=== PATIENT | male | born 1960 | race Caucasian/White ===

== ENCOUNTER → 2020-10-05 11:45 | Outpatient (CLI) | payer OTHER, SELFPAY ==
--- NOTE | 2020-10-05 11:48 | XR_ITS ---
PROCEDURE: XR HAND RT MIN 3V CLINICAL INDICATION: pain COMPARISON: No exams were available for comparison FINDINGS: Mild osteoarthritic changes are present at the DIP of the 3rd and 4th digits and interphalangeal joint of the 1st digit. No fracture or dislocation. Other findings:None. IMPRESSION: Mild osteoarthritic change Dictated by: Pedro Patton MD 10/05/2020 12:39 Pedro Patton MD in [place] 10/05/2020 12:39
== END ==
PROVIDERS: PCP Nurse Practitioner Family; Visit Provider Nurse Practitioner Family
DX: M79.641 Pain in right hand (principal)
CPT/HCPCS: 73130

== ENCOUNTER → 2020-10-05 15:28 | Outpatient (CLI) | payer OTHER, SELFPAY ==
[2020-10-05 15:49] LABS: Alanine Aminotransferase 51 U/L (12-78); Albumin/Globulin Ratio 1.3 (1.1-1.8); Alkaline Phosphatase 72 U/L (38-126); Anion Gap 17.8 mEq/L (5-15); Aspartate Amino Transferase 89 U/L (17-59); Bilirubin,Total 0.7 mg/dl (0.2-1.3); Blood Urea Nitrogen 13 mg/dl (9-20); Calcium 9.8 mg/dl (8.4-10.2); Carbon Dioxide 26 mmol/L (22.0-30.0); Chloride 102 mmol/L (98-107); Chol/HDL Ratio 2.4 (1-3.5); Cholesterol 217 mg/dl (140-200); Estimated Glomerular Filt Rate 99 ml/min (>60); GFR (African American) 119 ML/MIN (>60); Globulin 3.8 g/dL (1.3-3.2); Glucose 103 mg/dl (74-100); HDL Cholesterol 90 mg/dl (40-60); Potassium 3.8 mmoL/L (3.5-5.1); Sodium 142 mmol/L (136-145); Total Protein,Serum 8.8 g/dl (6.3-8.2); Triglycerides 118 mg/dl (30-150); VLDL Cholesterol 24 mg/dL (0-40)
[2020-10-05 16:00] LABS: Direct LDL Cholesterol 106.66 mg/dL (100-129)
[2020-10-05 16:07] LABS: T4 (Thyroxine) 7.9 ug/dl (5.53-11.0)
[2020-10-05 16:11] LABS: 25-OH Vitamin D, Total < 12.8 ng/mL (30-100)
[2020-10-05 16:20] LABS: Thyroid Stimulating Hormone 2.24 uIU/mL (0.465-4.68)
[2020-10-05 16:39] LABS: Vitamin B12 462 pg/mL (239-931)
[2020-10-05 19:49] LABS: Basophils # 0.1 K/mm3 (0-0.2); Eosinophils # 0.1 K/mm3 (0.0-0.4); Eosinophils % 1.6 % (0.1-12.0); Hematocrit 46.8 % (42.0-52.0); Hemoglobin 15.5 g/dL (14.1-18.0); Lymphocytes # 1.4 K/mm3 (0.7-4.5); Lymphocytes % 25.8 % (10-50); Mean Corpuscular HGB Conc 33.1 g/dL (31.8-35.4); Mean Corpuscular Hemoglobin 30.8 pg (27.0-31.2); Mean Platelet Volume 8.6 fl (7.4-10.4); Monocytes # 0.4 K/mm3 (0.1-1.0); Monocytes % 7.9 % (1.7-9.3); Neutrophils # 3.5 K/mm3 (1.8-7.8); Neutrophils % 63.7 % (37.0-80.0); Platelet Count 180 K/mm3 (142-424); Red Blood Count 5.04 M/mm3 (4.60-6.20); Red Cell Distribution Width 13.2 % (11.5-17.5); White Blood Count 5.5 K/mm3 (4.8-10.8)
[2020-10-05 20:21] LABS: Hemoglobin A1C 5.6 % (4.0-6.0)
== END ==
PROVIDERS: Visit Provider Nurse Practitioner Family
DX: I25.10 Atherosclerotic heart disease of native coronary artery without angina pectoris (principal); R53.83 Other fatigue; R73.09 Other abnormal glucose; E55.9 Vitamin D deficiency, unspecified
CPT/HCPCS: 80053; 80061; 82306; 82607; 83036; 84436; 84443; 85025

== ENCOUNTER → 2020-11-07 06:11 | Outpatient (CLI) | payer OTHER, SELFPAY ==
--- NOTE | 2020-11-07 06:11 | NM_ITS ---
APPROVED REPORT Exam: Nuclear Stress Test Indication: CAD, Hx of IA, High cholesterol, Family history Patient Location: Outpatient Stress Tech: Brianna Dubose ID Tech:Diane Holm, ARRT, RT (R)(N) Ht: 5 ft 9 in Wt: 209 lbs HR: 82 bpm BP: 163/86 mmHg BSA: 2.10 m2 BMI: 30.8 History: CAD, Hx of IA, High cholesterol, Family history Procedure: Patient received a 0.4 mg of intravenous Lexiscan, resting heart rate 82 bpm, resting blood pressure 163/86 mmHg, with Lexiscan maximum heart rate achived was 111 bpm which is Less than 85 % of the maximum predicted heart rate and blood pressure was 170/91 mmHg. With Lexiscan, patient denied any complaint of chest pain. Electrocardiogram Resting electrocardiogram shows sinus rhythm, less than 1.[address] segment depression noted from the baseline EKG. The EKG portion of the Lexiscan is nondiagnostic. Cardiac Stress and Resting SPECT Images: Cardiac Stress and Resting SPECT images were obtained using technetium 99m Myoview 27.6 mCi stress and 9.52 mCi at rest. Gated SPECT for analysis of segmental wall motion and calculation of the ejection fraction also done. Prone images were also obtained. Cardiac stress and resting SPECT images show uniform myocardial activity without segmental perfusion abnormality, computer derived ejection fraction is 62% with no regional wall motion abnormality, right ventricle is normal size and contractility. Conclusion: 1. The EKG portion of the Lexiscan is nondiagnostic. 2. No scintigraphic evidence of reversible ischemia seen, computer derived ejection fraction is 62% with no regional wall motion abnormality, right ventricle is normal size and contractility. 3. Normal Lexiscan Myoview study. Electronically signed by : Phi Vasquez, 11/07/2020 22:03:16
--- NOTE | 2020-11-07 06:11 | CA_ITS ---
APPROVED REPORT Exam: Pharmacologic Technologist: Brianna Dubose Ht: 5 ft 9 in Wt: 208 lbs BSA: 2.10 m2 HR: 82 bpm BP: 163/86 mmHg Indications: Shortness of Air, chest pain Medical History Medications: Simvastatin,,,,, Vitamin D3,,,,, Allopurinol,,,,, Vitamin D2,,,,, Milk Thistle,,,,, Stress Test Details Test: LEXISCAN HR Resting HR: 86 bpm Max Heart Rate (APMHR): 160.974964 bpm Max HR Achieved: 111 bpm Target HR (85% APMHR): 136.292670 bpm % of APMHR: 69.38 Recovery HR: 82 bpm BP Resting BP: 163.0/86.0 mmHg Max BP: 170.0/91.0 mmHg Recovery BP: 153.0/87.0 mmHg ECG Clinical Exercise duration: 04:00 min Highest Stage Achieved: Stress ECG Conclusion Symptoms: Shortness of air with Lexiscan infusion. Headache noted. No chest pain. Arrhythmias/Ectopy: None noted ST-T Changes: < 1.[address] segment changes. Test Summary . Myoview Injected . . . Stop exercise at 04:00 . . . . . Electronically signed by : Phi Vasquez, 11/07/2020 21:55:10
--- NOTE | 2020-11-07 06:11 | CA_ITS ---
APPROVED REPORT EXAM: Comprehensive 2D, Doppler, and color-flow Echocardiogram Manager Home Improvement: Nancy Fermin RVT Ht: 5 ft 9 in Wt: 208lbs BSA: 2.10 BP: 160/94 mmHg Indications: SOA,STENTS,CAD,HTN,HLD,EX SMOKER,CP,HX ID 2D Dimensions LVOT 2.08 cm (M/F) 1.5-2.5 LA Volume 19.90 mL LA Volume Index 9.47 mL/m2 (M/F) 16-34 M-Mode Dimensions RVDd 3.37 cm (0.9-2.6) LA Diam 3.45 cm (1.9-4.0) LVDd 5.14 cm (3.5-5.7) Ao Diam 3.13 cm (2.0-3.7) LVDs 3.45 cm (3.5-5.7) IVSd 0.64 cm (0.6-1.1) PWd 0.96 cm (0.6-1.1) EF (Teich) 61.10% FS 32.90% EDV (Teich) 126.10 mL ESV (Teich) 49.10 mL LV Diastology E Decel Time 173.00 (160-240 msec) E/A Ratio 1.2 MED E' 8.10 (< 7 cm/sec) E'/MED E' Ratio 10.60 (>14) LAT E' 11.30 (<10 cm/sec) E/LAT E' Ratio 7.60 (>14) Mitral Valve MV E Max Sergio. 86.00 (40-130 cm/s) MV A Velocity 69.00 (40-130 cm/s) E/A Ratio 1.24 MV Decel. Time 173.00 (160-240 ms) MV PHT 51.00 ms Pulmonary Valve PV Peak Velocity 104.00 (50-150 cm/s) Left Ventricle Left atrium is mildly enlarged, left ventricle is normal size, mild concentric left ventricular hypertrophy, visually estimated ejection fraction of 55% with the marked hypokinesis involving the inferior basal wall. Grade 1 diastolic dysfunction seen without tissue Doppler evidence of raise left atrial pressure. Right Ventricle Right atrium and right ventricle are normal size and contractility. Aortic Valve Aortic valve is thickened and calcified leaflet continue to display good mobility, there is no aortic stenosis or aortic insufficiency. Mitral Valve Mitral valve leaflets are grossly normal, there is trace mitral regurgitation. Tricuspid Valve Tricuspid valve grossly normal, there is trace tricuspid regurgitation. Pulmonic Valve Pulmonic valve is poorly visualized. Great Vessels Aortic root is normal size. Pericardium No significant pericardial effusion noted. Conclusion 1. Mildly enlarged left atrium, normal left ventricular size, mild concentric left ventricular hypertrophy, visually estimated ejection fraction 55% with segmental wall motion abnormality described above, grade 1 diastolic dysfunction seen without tissue Doppler evidence of raise left atrial pressure. 2. Trace mitral and tricuspid regurgitation. 3. No significant pericardial effusion noted. Electronically signed by : Phi Vasquez, 11/07/2020 09:12:55
--- NOTE | 2020-11-07 10:08 | HMH.ITSHM ---
Current Home Medications as stated by this patient Rajeev Michelle or provider service representative. []SIMVASTATIN ALLOPURINOL
== END ==
PROVIDERS: PCP Nurse Practitioner Family; Visit Provider Physician Assistant
DX: I25.10 Atherosclerotic heart disease of native coronary artery without angina pectoris (principal); I10 Essential (primary) hypertension; R94.31 Abnormal electrocardiogram [ECG] [EKG]; E78.5 Hyperlipidemia, unspecified; Z95.5 Presence of coronary angioplasty implant and graft
CPT/HCPCS: 78452; 93017; 93306; A9502; J2785

== ENCOUNTER → 2020-11-12 08:38 | Outpatient (CLI) | payer OTHER, SELFPAY ==
--- NOTE | 2020-11-12 08:44 | MR_ITS ---
PROCEDURE: MR HAND RT WO CON CLINICAL INDICATION: hand pain Pt c/o rt 4th finger pain when he moves it. Pt states it started hurting him while playing golf. Pt denies pain and any other area of rt hand. COMPARISON: No exams were available for comparison TECHNIQUE: Routine multiplanar multi echo sequences are performed without gadolinium enhancement. FINDINGS: No acute bone marrow edema. Small effusions 2nd through 4th metacarpophalangeal joints and at the 5th metacarpophalangeal joint. Mild increased STIR signal adjacent to the proximal attachment of the ulnar collateral ligament at the 4th metacarpophalangeal joint and could be seen with partial tear. Osteoarthritic change 1st metacarpophalangeal joint. No obvious fracture. No tendon abnormalities apparent. IMPRESSION: Possible partial tear at the ulnar collateral ligament at the 4th metacarpophalangeal junction. Other nonacute findings as described above. [facility] report rendered and available for review Dictated by: Pedro Patton MD 11/15/2020 10:17 Pedro Patton MD in [place] 11/15/2020 10:17
== END ==
PROVIDERS: PCP Nurse Practitioner Family; Visit Provider Orthopaedic Surgery
DX: M79.641 Pain in right hand (principal)
CPT/HCPCS: 73218

== ENCOUNTER → 2021-01-10 07:18 | Outpatient (CLI) | payer OTHER, SELFPAY ==
[2021-01-10 07:44] LABS: Basophils # 0.1 K/mm3 (0-0.2); Basophils % 2.1 % (0.1-2.0); Eosinophils # 0.3 K/mm3 (0.0-0.4); Eosinophils % 7.3 % (0.1-12.0); Hematocrit 43.7 % (42.0-52.0); Hemoglobin 14.4 g/dL (14.1-18.0); Lymphocytes # 1.4 K/mm3 (0.7-4.5); Lymphocytes % 37.7 % (10-50); Mean Corpuscular Hemoglobin 30.8 pg (27.0-31.2); Mean Corpuscular Volume 93.3 fl (80-94); Mean Platelet Volume 8.7 fl (7.4-10.4); Monocytes # 0.3 K/mm3 (0.1-1.0); Monocytes % 8.7 % (1.7-9.3); Neutrophils # 1.6 K/mm3 (1.8-7.8); Neutrophils % 44.2 % (37.0-80.0); Platelet Count 184 K/mm3 (142-424); Red Blood Count 4.68 M/mm3 (4.60-6.20); Red Cell Distribution Width 13.2 % (11.5-17.5); White Blood Count 3.7 K/mm3 (4.8-10.8)
[2021-01-10 08:37] LABS: Chloride 101 mmol/L (98-107)
[2021-01-10 08:38] LABS: Potassium 3.9 mmoL/L (3.5-5.1); Sodium 140 mmol/L (136-145)
[2021-01-10 08:40] LABS: Alanine Aminotransferase 70 U/L (12-78); Albumin Level 4.6 g/dl (3.5-5.0); Albumin/Globulin Ratio 1.6 (1.1-1.8); Alkaline Phosphatase 59 U/L (38-126); Anion Gap 12.9 mEq/L (5-15); Aspartate Amino Transferase 95 U/L (17-59); Bilirubin,Total 0.6 mg/dl (0.2-1.3); Blood Urea Nitrogen 10 mg/dl (9-20); Carbon Dioxide 30 mmol/L (22.0-30.0); Cholesterol 181 mg/dl (140-200); Estimated Glomerular Filt Rate 86 ml/min (>60); GFR (African American) 104 ML/MIN (>60); Globulin 2.9 g/dL (1.3-3.2); Total Protein,Serum 7.5 g/dl (6.3-8.2); Triglycerides 122 mg/dl (30-150); VLDL Cholesterol 24 mg/dL (0-40)
[2021-01-10 08:41] LABS: Calcium 9.8 mg/dl (8.4-10.2); Chol/HDL Ratio 1.9 (1-3.5); Glucose 98 mg/dl (74-100); HDL Cholesterol 94 mg/dl (40-60)
[2021-01-10 08:52] LABS: Direct LDL Cholesterol 60.05 mg/dL (100-129)
[2021-01-10 08:54] LABS: Hemoglobin A1C 5.5 % (4.0-6.0)
[2021-01-10 09:00] LABS: T4 (Thyroxine) 7.1 ug/dl (5.53-11.0)
[2021-01-10 09:11] LABS: Thyroid Stimulating Hormone 2.77 uIU/mL (0.465-4.68)
[2021-01-17 04:12] LABS: 1,25 Dihydroxy Vitamin D 62 pg/mL (.); 1,25-Dihydroxy, Vitamin D-2 49 pg/mL (.); 1,25-Dihydroxy, Vitamin D-3 13 pg/mL (.)
== END ==
PROVIDERS: Visit Provider Nurse Practitioner Family
DX: I25.10 Atherosclerotic heart disease of native coronary artery without angina pectoris (principal); R73.09 Other abnormal glucose; E78.5 Hyperlipidemia, unspecified; I10 Essential (primary) hypertension; R73.03 Prediabetes; Z68.29 Body mass index [BMI] 29.0-29.9, adult
CPT/HCPCS: 36415; 80053; 80061; 82652; 83036; 84436; 84443; 85025

== ENCOUNTER → 2021-08-23 10:28 | Outpatient (CLI) | payer OTHER, SELFPAY | PROVIDERS: PCP Nurse Practitioner Family; Visit Provider Nurse Practitioner | DX: U07.1 COVID-19 (principal) | CPT/HCPCS: C9803; U0003; U0005 ==

== ENCOUNTER 2021-10-20 14:26 | Observation (INO) | payer OTHER, SELFPAY ==
[2021-10-16 13:19] VITALS: BMI 30.2
[2021-10-20] VITALS (8 sets, daily range): BP systolic 139–175; BP diastolic 82–103; PULSE 67–110; RESP 18–22; TEMP 36.1–37.2; O2SAT 95–97; BMI 30.4
--- NOTE | 2021-10-20 12:14 | HMH.ANESCL ---
[facility] Anesthesia Checklist - Patient Identification Patient Identification: Arm Band, Verbal (Name & ) - Structural Data Admitted From: Home Planned Operative Procedure/s: Colonoscopy Verified Documents: Surgical Consent - Airway Assessment C-Spine Mobility Assessed: Yes TMJ Mobility Assessed: Yes Dentition: Edentulous - Neurological Assessment Level of Consciousness: Awake, Alert, Appropriate - Anesthesia Plan Anesthesia Risk discussed: Yes ASA Class: III Anesthesia Type: MAC [facility] History I have reviewed the patient's past medical history: Yes Medical History: Reports:: Coronary Artery Disease, Hyperlipidemia, Hypertension, Myocardial Infarction Denies:: Cancer, Diabetes Mellitus Type 1, Diabetes Mellitus Type 2, Internal Pacemaker, MRSA, Seizures *Have you ever received a pneumonia vaccine?: No *Have you received a flu vaccine this season?: No Anesthesia experience/problems:: none Other Surgeries: Yes: Cardiac Catheterization, Coronary Stent. No: Pacemaker Amputation: No Fractures: Yes (r ankle) - *Social History Last grade of school completed: 11th or 12th Smoking Status: Former smoker Alcohol Intake: never Alcohol Intake Frequency:: 3 or more drinks per day Substance Use Type: denies use *Occupational Status:: employed Housing: house *Travel in the last 8 weeks: None Family Hx:: No significant family history
[2021-10-20 14:48] LABS: Basophils % 0.9 % (0.1-2.0); Eosinophils % 0.8 % (0.1-12.0); Hematocrit 42.1 % (42.0-52.0); Hemoglobin 13.8 g/dL (14.1-18.0); Lymphocytes # 1.1 K/mm3 (0.7-4.5); Lymphocytes % 30.9 % (10-50); Mean Corpuscular HGB Conc 32.7 g/dL (31.8-35.4); Mean Corpuscular Hemoglobin 31.4 pg (27.0-31.2); Mean Corpuscular Volume 95.9 fl (80-94); Mean Platelet Volume 7.7 fl (7.4-10.4); Monocytes # 0.3 K/mm3 (0.1-1.0); Monocytes % 9.2 % (1.7-9.3); Neutrophils # 2.1 K/mm3 (1.8-7.8); Neutrophils % 58.3 % (37.0-80.0); Platelet Count 153 K/mm3 (142-424); Red Blood Count 4.38 M/mm3 (4.60-6.20); Red Cell Distribution Width 14.1 % (11.5-17.5); White Blood Count 3.5 K/mm3 (4.8-10.8)
[2021-10-20 15:20] LABS: INR 1.06 (0.9-1.1); Prothrombin Time 11.9 seconds (10.1-12.5)
--- NOTE | 2021-10-20 15:26 | HMH.SCOPE ---
- Procedure: Date: 10/20/21 Patient Date of :: 1960 Procedure Performed:: Colonoscopy with numerous polypectomy, polypectomy biopsy, and deployment of Hemoclip for hemostasis Indications:: Patient is a 61-year-old male referred by Lizbeth Michelle for colonoscopy. He apparently did have a positive Cologuard last year he states in October 2020. He has never had a prior colonoscopy. He is asymptomatic regarding rectal bleeding. He has no family history of colon cancer but he does state that his mother had diverticulitis. Patient did have a heart attack at age 44 and has seen Sarah. Reportedly no cardiac issues. Patient did have Covid diagnosed on August 21, 2021. Patient admits that he drinks approximately 4-5 alcoholic beverages daily. Performing Provider:: Kimani Mckeon MD Referring Provider:: Lizbeth Michelle Sedation:: MAC sedation Procedure:: Consent was obtained and patient was taken to endoscopy procedure room. He was positioned in lateral decubitus position. Adequate intravenous sedation was achieved with anesthesia titration of propofol. Digital examination was performed which revealed uniformly enlarged prostate. Variable stiffness Olympus colonoscope was inserted via the anus. It was advanced to the cecum. Colonic preparation was good. Upon advancement of the colonoscope it was noted that he had multiple complex large polyps and a mass at the proximal transverse colon. The ileocecal valve and appendiceal orifice were clearly identified. Colonoscope was advanced short distance into the terminal ileum which appeared grossly normal. Colonoscope was withdrawn into the cecum. There were multiple polyps in the cecum. He had approximately 4 polyps measuring about 3 to 4 mm and a flat sessile 1 cm polyp in the cecum. These were removed with cold cutting snare. At the hepatic flexure there was a polyp removed with cold cutting snare. In the proximal transverse colon there was a large adenomatous mass which was hemicircumferential. Large portions of this were able to be removed with hot snare for biopsy. The mass could not be removed in its entirety. These pathologic specimens were repeatedly grasped with the Fritz net and macerated for removal. Racheal ink was injected at the site of this mass presumably near the proximal transverse colon. A Hemoclip was placed to car this radiographically. In the transverse colon there were a couple of additional polyps just distal to this measuring about 4 to 6 mm removed with cold cutting snare. In the distal transverse colon there were 5 polyps noted proximal to the hepatic flexure. 3 of these were pedunculated measuring about 8 to 12 mm these were removed with hot snare. There were 2 smaller polyps measuring 3 to 4 mm removed with cold snare. In the descending: There was a 4 mm polyp removed with cold snare. There were polyps noted within the sigmoid colon. There was a 12 mm polyp removed with hot snare. There was a 4 mm polyp removed with cold snare. Sigmoid polyp there was a 15 mm polyp removed with hot snare. Upon polypectomy there was noted to be bleeding from the polypectomy site. With some difficulty the clot was evacuated with repeated retrieval and reinsertion of the colonoscope and use of the Fritz net. There was polypectomy site that appeared to be recently bleeding and Hemoclip was deployed. However, just distal to this there was a second polypectomy site in the sigmoid colon approximately 45 cm from the anal verge which showed some active bleeding. Ultimately this had shown spontaneous resolution. There was a submucosal hematoma. To ensure hemostasis Hemoclip x2 was deployed at this location. Deployment of the Hemoclip was somewhat difficult due to the submucosal hematoma. There was no evidence of active bleeding at this time. He did have quite significant left-sided sigmoid diverticulosis. Retroflexion within the rectum revealed no evidence of any pathol
--- NOTE | 2021-10-20 15:36 | HMH.GSHP ---
HPI HPI: Patient is a 61-year-old male. He is referred by Lizbeth Michelle for colonoscopy. He did apparently have a positive Cologuard test in October 2020. He had never had prior colonoscopy. He has no family history of colon cancer. He states that his mother had diverticulitis. Patient apparently did have a heart attack at age 44. He sees cardiology. He had a diagnosis of COVID on 08/21/2021. Patient does admit to drinking daily alcohol. Patient was taken for endoscopy. He was found to have numerous complex polyps and had a transverse colon proximal mass. Polypectomy performed in the sigmoid colon resulted in post polypectomy bleeding immediately noted at the time of his procedure. Hemostasis was able to be achieved with Hemoclip deployment. However, plan was made for admission for inpatient observation to assess for recurrent bleeding and for hemoglobin stability. [facility] History I have reviewed the patient's past medical history: Yes Medical History: Reports:: Coronary Artery Disease, Hyperlipidemia, Hypertension, Myocardial Infarction Denies:: Cancer, Diabetes Mellitus Type 1, Diabetes Mellitus Type 2, Internal Pacemaker, MRSA, Seizures *Have you ever received a pneumonia vaccine?: No *Have you received a flu vaccine this season?: No Anesthesia experience/problems:: none Other Surgeries: Yes: Cardiac Catheterization, Coronary Stent. No: Pacemaker Amputation: No Fractures: Yes (r ankle) - *Social History Last grade of school completed: 11th or 12th Smoking Status: Former smoker Alcohol Intake: never Alcohol Intake Frequency:: 3 or more drinks per day Substance Use Type: denies use *Occupational Status:: employed Housing: house *Travel in the last 8 weeks: None Family Hx:: No significant family history Review of Systems - Review of Systems Review of systems:: unable to obtain Meds Home Medications Medication Instructions Recorded Confirmed Type milk thistle 175 mg tablet 350 mg PO DAILY tab 10/05/20 10/20/21 History cholecalciferol (vitamin D3) 25 25 mcg PO DAILY 10/25/20 10/20/21 History mcg (1,000 unit) capsule loratadine 10 mg tablet 10 mg PO DAILY 09/11/21 10/20/21 History sildenafil 25 mg tablet 25 mg PO DAILY PRN #10 tab 09/11/21 10/20/21 Rx Aspirin [Low Dose Aspirin EC] 81 mg PO DAILY 10/16/21 10/20/21 History Rosuvastatin Calcium See Rx Instructions .ROUTE .COMPLEX 10/16/21 10/20/21 History allopurinoL [Allopurinol 100mg See Rx Instructions .ROUTE .COMPLEX 10/16/21 10/20/21 History tablet] Allergies Allergy/AdvReac Type Severity Reaction Status Date / Time diphenhydramine Allergy Verified 10/20/21 10:41 [From Benadryl] hydrocodone Allergy Verified 10/20/21 10:41 nitroglycerin Allergy Verified 10/20/21 10:41 atorvastatin [From Lipitor] AdvReac Severe Verified 10/20/21 10:41 Exam Vital signs and Labs for Last 24 Hours: Temp Pulse Resp BP Pulse Ox 99 F 100 H 18 139/87 96 10/20/21 10:47 10/20/21 10:47 10/20/21 10:47 10/20/21 10:47 10/20/21 10:47 Laboratory Results - last 24 hr 10/20/21 14:30: WBC 3.5 L, RBC 4.38 L, Hgb 13.8 L, Hct 42.1, MCV 95.9 H, MCH 31.4 H, MCHC 32.7, RDW 14.1, Plt Count 153, MPV 7.7, Neut % (Auto) 58.3, Lymph % (Auto) 30.9, [place] % (Auto) 9.2, Eos % (Auto) 0.8, Baso % (Auto) 0.9, Neut # (Auto) 2.1, Lymph # (Auto) 1.1, [place] # (Auto) 0.3, Eos # (Auto) 0.0, Baso # (Auto) 0.0 10/20/21 14:30: PT 11.9, INR 1.06 - Constitutional no acute distress - *Routine HEENT Exam Head: Present: normocephalic Eye: Present: EOMI, PERRL ENT: Present: mucous membranes moist - *Routine Neck Exam Present: supple. Absent: lymphadenopathy - *Routine Respiratory Exam Present: CTA bilaterally - *Routine Cardiovascular Exam Present: RRR - *Routine Abdominal Exam Present: soft, normoactive bowel sounds. Absent: tenderness - *Routine Rectal Exam Rectal:: deferred - *Routine Genitalia Exam Genitalia:: deferred - *Routine Extremities Exam Abs
--- NOTE | 2021-10-20 15:43 | CT_ITS ---
PROCEDURE INFORMATION: Exam: CT Abdomen And Pelvis With Contrast Exam date and time: 10/20/2021 3:43 PM Age: 61 years old Clinical indication: Abdominal tenderness and other: Transverse colon proximal mass; Additional info: Colon mass found on scope today. Transverse colon proximal mass TECHNIQUE: Imaging protocol: Computed tomography of the abdomen and pelvis with contrast. Radiation optimization: All CT scans at this facility use at least one of these dose optimization techniques: automated exposure control; mA and/or kV adjustment per patient size (includes targeted exams where dose is matched to clinical indication); or iterative reconstruction. Contrast material: ISOVUE; Contrast volume: 75 ml; Contrast route: IV; COMPARISON: No relevant prior studies available. FINDINGS: Lungs: Patchy/ground-glass airspace opacities in the left lung base. Lung bases are otherwise clear. Diaphragm: A small hiatal hernia is present. Liver: There is enlargement of the liver, measuring 18.3 cm. There is a diffuse decrease in hepatic parenchymal density, consistent with fatty infiltration. The liver is otherwise unremarkable. Gallbladder and bile ducts: Normal. No calcified stones. No ductal dilation. Pancreas: Normal. No ductal dilation. Spleen: The spleen demonstrates punctate calcifications, consistent with remote granulomatous organism exposure. The spleen is otherwise unremarkable. Adrenal glands: Normal. No mass. Kidneys and ureters: Normal. No hydronephrosis. Stomach and bowel: There is diffuse colonic diverticulosis. [place] colonic intussusception in the transverse colon (image 69 series 3 and image 13 series a 1001). 4.3 cm x 3.7 cm mass at the level of the colo colonic intussusception, likely involving the intussusceptum. 2 cm metallic linear density at the level of the colo colonic intussusception. 1.7 cm x 1.7 cm intraluminal mass in the descending colon (image 91 series 3 and image 31 series a 1001). Questionable additional intraluminal polypoid lesions at the descending colon, for example a polypoid lesion is suggested in the descending colon on image 76 series 3. A 2nd polypoid lesion measuring 1.3 cm is suggested on image 80 series 3. Linear/metallic density at the level of the mass in the descending colon. A 2nd linear metallic density is also observed in the descending colon as well. No other large or measurable colonic masses are identified. No other segmental bowel wall thickening. There is diffuse colonic diverticulosis present. Appendix: No evidence of appendicitis. Intraperitoneal space: No free fluid, fluid collections, or pneumoperitoneum. Vasculature: The vasculature demonstrates diffuse mild atherosclerotic calcification. Lymph nodes: No retroperitoneal, pelvic, or mesenteric adenopathy. Urinary bladder: The bladder is decompressed. Circumferential urinary bladder wall thickening and mild perivesical fat stranding. Reproductive: Unremarkable as visualized. Bones/joints: No acute skeletal pathology. Mild multilevel degenerative changes of the spine, as manifested by multilevel anterior osteophytes and multilevel decrease in intervertebral disc space. Soft tissues: 2.2 cm intramuscular lipoma within the right teres major muscle. No other acute body wall soft tissue findings. IMPRESSION: 1. Transverse colon colo colonic intussusception, etiology related to a 4.3 cm x 3.7 cm colonic mass acting as a lead point. This correlates with the documented mass seen on a colonoscopy performed recently. Main diagnostic consideration is that of colonic carcinoma. 2. 2 cm metallic density at the level of the colonic mass, unclear if
[2021-10-20 16:02] LABS: Alanine Aminotransferase 49 U/L (12-78); Albumin Level 4.1 g/dl (3.5-5.0); Albumin/Globulin Ratio 1.6 (1.1-1.8); Alkaline Phosphatase 53 U/L (38-126); Anion Gap 17.3 mEq/L (5-15); Aspartate Amino Transferase 94 U/L (17-59); Bilirubin,Total 0.6 mg/dl (0.2-1.3); Blood Urea Nitrogen 10 mg/dl (9-20); Calcium 8.5 mg/dl (8.4-10.2); Carbon Dioxide 24 mmol/L (22.0-30.0); Chloride 100 mmol/L (98-107); Creatinine Clearance Estimated 102 mL/min (50-200); Estimated Glomerular Filt Rate 98 ml/min (>60); GFR (African American) 119 ML/MIN (>60); Globulin 2.5 g/dL (1.3-3.2); Glucose 73 mg/dl (74-100); Potassium 4.3 mmoL/L (3.5-5.1); Sodium 137 mmol/L (136-145); Total Protein,Serum 6.6 g/dl (6.3-8.2)
--- NOTE | 2021-10-20 16:24 | SUR.PHASEII ---
1615- oral RAD contrast po completed
--- NOTE | 2021-10-20 17:50 | PC.NURSE ---
Pt wishes to be a DNI. Expression of wishes form filled out and signed, code status changed in cpu at this time
[2021-10-20 18:06] LABS: Coronavirus 19, PCR Not Detected (NotDetected); Influenza A, PCR Not Detected (NotDetected); Influenza B, PCR Not Detected (NotDetected)
[2021-10-20 18:15] LABS: Hematocrit 40.7 % (42.0-52.0); Hemoglobin 13.4 g/dL (14.1-18.0)
--- NOTE | 2021-10-20 20:14 | HMH.CONS ---
*Admission Date: 10/20/21 *Reason for consult:: medical care *History of present illness: Patient is a 61-year-old male. He is referred by Lizbeth Michelle for colonoscopy. He did apparently have a positive Cologuard test in October 2020. He had never had prior colonoscopy. He has no family history of colon cancer. He states that his mother had diverticulitis. Patient apparently did have a heart attack at age 44. He sees cardiology. He had a diagnosis of COVID on 08/21/2021. Patient does admit to drinking daily alcohol. Patient was taken for endoscopy. He was found to have numerous complex polyps and had a transverse colon proximal mass. Polypectomy performed in the sigmoid colon resulted in post polypectomy bleeding immediately noted at the time of his procedure. Hemostasis was able to be achieved with Hemoclip deployment. However, plan was made for admission for inpatient observation to assess for recurrent bleeding and for hemoglobin stability. [facility] History I have reviewed the patient's past medical history: Yes Medical History: Reports:: Coronary Artery Disease, Hyperlipidemia, Hypertension, Myocardial Infarction Denies:: Cancer, Diabetes Mellitus Type 1, Diabetes Mellitus Type 2, Internal Pacemaker, MRSA, Seizures *Have you ever received a pneumonia vaccine?: No *Have you received a flu vaccine this season?: No Other Medical History: Reports: Sinus Problems Anesthesia experience/problems:: none Other Surgeries: Yes: Cardiac Catheterization, Colonoscopy, Coronary Stent. No: Pacemaker Amputation: No Fractures: Yes (r ankle) - *Social History Last grade of school completed: 11th or 12th Smoking Status: Former smoker Alcohol Intake: current Alcohol Intake Frequency:: 3 or more drinks per day Substance Use Type: denies use *Occupational Status:: employed Housing: house Household Members: significant other *Travel in the last 8 weeks: None Family Hx:: Cancer, Diabetes, Heart Attack, Hyperlipidemia, Hypertension Review of Systems - Review of Systems Review of systems:: pertinent systems reviewed and negative unless documented below - Constitutional Denies fever(s) - Eyes Denies change in vision - ENT Denies sore throat - *Cardiovascular Denies chest pain - *Respiratory Denies cough - *Gastrointestinal Reports abdominal pain, Reports nausea - *Genitourinary Denies blood in urine - *Musculoskeletal Denies joint pain - Integumentary/Breasts Denies rash - *Neurologic Denies behavioral changes, Denies seizure-like activity, Denies seizure-like activity - Psychiatric Reports anxiety, Reports other (etoh use ) Meds Home Medications Medication Instructions Recorded Confirmed Type milk thistle 175 mg tablet 350 mg PO DAILY tab 10/05/20 10/20/21 History cholecalciferol (vitamin D3) 25 25 mcg PO DAILY 10/25/20 10/20/21 History mcg (1,000 unit) capsule loratadine 10 mg tablet 10 mg PO DAILY 09/11/21 10/20/21 History sildenafil 25 mg tablet 25 mg PO DAILY PRN #10 tab 09/11/21 10/20/21 Rx Aspirin [Low Dose Aspirin EC] 81 mg PO DAILY 10/16/21 10/20/21 History Rosuvastatin Calcium See Rx Instructions .ROUTE .COMPLEX 10/16/21 10/20/21 History allopurinoL [Allopurinol 100mg See Rx Instructions .ROUTE .COMPLEX 10/16/21 10/20/21 History tablet] Allergies Allergy/AdvReac Type Severity Reaction Status Date / Time diphenhydramine Allergy Verified 10/20/21 10:41 [From Benadryl] hydrocodone Allergy Verified 10/20/21 10:41 nitroglycerin Allergy Verified 10/20/21 10:41 atorvastatin [From Lipitor] AdvReac Severe Verified 10/20/21 10:41 Exam Vital signs and Labs for Last 24 Hours: Temp Pulse Resp BP Pulse Ox 97.4 F L 67 18 162/86 H 96 10/20/21 16:00 10/20/21 16:15 10/20/21 16:15 10/20/21 16:15 10/20/21 16:15 Laboratory Results - last 24 hr 10/20/21 14:30: WBC 3.5 L, RBC 4.38 L, Hgb 13.8 L, Hct 42.1, MCV 95.9 H, MCH 31.4 H, MCHC 32.7, RDW 14.1, Plt Count 153, MPV 7.7
--- NOTE | 2021-10-20 20:17 | PC.NURSE ---
Pint of vodka found in pt's room. 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 CIWA score on arrival was 8, 2 hours later CIWA score of 10. MD Ga notified-telephone order to start Ativan CIWA protocol along w/ thiamine, multivitamin and folic acid per ETOH withdrawal protocol. 1mg IV Ativan given per protocol. MD Dupont did round on pt-ordered rally pack x1. Also made aware of abd CT findings of multiple masses. NNO
[2021-10-21] VITALS: BP 116/67; PULSE 117; RESP 16; TEMP 37; O2SAT 95
[2021-10-21 04:00] VITALS: BP 119/72; PULSE 88; RESP 16; TEMP 36.9; O2SAT 93
[2021-10-21 05:03] VITALS: BMI 29.4
[2021-10-21 07:24] LABS: Basophils % 0.5 % (0.1-2.0); Eosinophils % 0.2 % (0.1-12.0); Hematocrit 38.1 % (42.0-52.0); Hemoglobin 12.5 g/dL (14.1-18.0); Lymphocytes # 1.3 K/mm3 (0.7-4.5); Lymphocytes % 14.2 % (10-50); Mean Corpuscular HGB Conc 32.7 g/dL (31.8-35.4); Mean Corpuscular Hemoglobin 30.6 pg (27.0-31.2); Mean Corpuscular Volume 93.6 fl (80-94); Mean Platelet Volume 7.9 fl (7.4-10.4); Monocytes # 0.7 K/mm3 (0.1-1.0); Monocytes % 7.2 % (1.7-9.3); Neutrophils # 7.2 K/mm3 (1.8-7.8); Neutrophils % 77.9 % (37.0-80.0); Platelet Count 169 K/mm3 (142-424); Red Blood Count 4.07 M/mm3 (4.60-6.20); Red Cell Distribution Width 14.6 % (11.5-17.5); White Blood Count 9.2 K/mm3 (4.8-10.8)
[2021-10-21 07:39] VITALS: BP 144/76; PULSE 98; RESP 16; TEMP 36.7; O2SAT 95
--- NOTE | 2021-10-21 07:58 | P.PN_ITS ---
Subjective Narrative: Patient feels good without any complaints whatsoever. He has been tolerating clear liquids. He initially had some blood with bowel movements as expected. This has now normalized to brown liquid. He denies abdominal pain. Progress Note: A&P Assessment and Plan for All Diagnoses:: Hemoglobin shows very slight decrease as would be expected with the polypectomy bleeding and hemodilution. He has had no additional clinical bleeding and has had some brown liquid bowel movements. I explained to the patient the findings on colonoscopy and CT scan with the implications. He will need colon resection. Plan will be for discharge with close outpatient follow-up. Exam Vital signs and Labs for Last 24 Hours: Temp Pulse Resp BP Pulse Ox 98.1 F 98 H 16 144/76 H 95 10/21/21 07:39 10/21/21 07:39 10/21/21 07:39 10/21/21 07:39 10/21/21 07:39 Laboratory Results - last 24 hr 10/20/21 14:30: WBC 3.5 L, RBC 4.38 L, Hgb 13.8 L, Hct 42.1, MCV 95.9 H, MCH 31.4 H, MCHC 32.7, RDW 14.1, Plt Count 153, MPV 7.7, Neut % (Auto) 58.3, Lymph % (Auto) 30.9, [place] % (Auto) 9.2, Eos % (Auto) 0.8, Baso % (Auto) 0.9, Neut # (Auto) 2.1, Lymph # (Auto) 1.1, [place] # (Auto) 0.3, Eos # (Auto) 0.0, Baso # (Auto) 0.0 10/20/21 14:30: PT 11.9, INR 1.06 10/20/21 14:30: Sodium 137, Potassium 4.3, Chloride 100, Carbon Dioxide 24, Anion Gap 17.3 H, BUN 10, Creatinine 0.80, Estimated Creat Clear 102, Estimated GFR 98, Est GFR ( Amer) 119, Glucose 73 L, Calcium 8.5, Total Bilirubin 0.6, AST 94 H, ALT 49, Alkaline Phosphatase 53, Total Protein 6.6, Albumin 4.1, Globulin 2.5, Albumin/Globulin Ratio 1.6 10/20/21 18:00: Hgb 13.4 L, Hct 40.7 L 02/25/22 18:00: SARS-CoV-2 (PCR) Not detected, Influenza A Untype (PCR) Not detected, Influenza Type B (PCR) Not detected 10/21/21 06:18: WBC 9.2 D, RBC 4.07 L, Hgb 12.5 L, Hct 38.1 L, MCV 93.6, MCH 30.6, MCHC 32.7, RDW 14.6, Plt Count 169, MPV 7.9, Neut % (Auto) 77.9, Lymph % (Auto) 14.2, [place] % (Auto) 7.2, Eos % (Auto) 0.2, Baso % (Auto) 0.5, Neut # (Auto) 7.2, Lymph # (Auto) 1.3, [place] # (Auto) 0.7, Eos # (Auto) 0.0, Baso # (Auto) 0.0 I & O for Last 24 hours: Intake & Output 10/18/21 10/19/21 10/20/21 10/21/21 11:59 11:59 11:59 11:59 Intake Total 60 / 60 Balance 60 / 60 Weight 198 lb 14.4 oz - *Routine Abdominal Exam Present: soft. Absent: tenderness
--- NOTE | 2021-10-21 08:05 | HMH.DCSUM ---
General - General Admission date:: 10/20/21 Discharge date: 10/21/21 HPI HPI: Patient is a 61-year-old male referred by Lizbeth Michelle for colonoscopy. He was seen in the office as a consultation on 10/12/2021. He apparently did have a positive Cologuard. He has never had a prior colonoscopy. He was asymptomatic regarding rectal bleeding. He has no family history of colon cancer but he does state that his mother had diverticulitis. Patient did have a heart attack at age 44 and has seen Sarah. Reportedly no cardiac issues. Patient did have Covid diagnosed on August 21, 2021. Patient admits that he drinks approximately 4-5 alcoholic beverages daily. He was scheduled for a colonoscopy. Given his admission to daily alcohol consumption preoperative blood work was ordered. However, patient did not have this performed. Therefore he had blood work performed during his procedure. Hospital Course Hospital Course: Patient was taken to endoscopy suite at which time he underwent colonoscopy. He was found to have numerous complex polyps throughout the colon, significant left-sided diverticulosis, and a colon mass at the proximal transverse colon. Near the completion of his prolonged procedure patient had polypectomy bleeding in the sigmoid colon. Ultimately hemostasis was able to be achieved with application of endoscopic hemoclips. There was somewhat of an expected submucosal hematoma at the site but this was not expanding. As the patient did not get his pre-operative labs as had been ordered hemoglobin during the procedure was checked and noted to be 13.8. He did have an estimated 150 to 200 cc of blood loss during the colonoscopy prior to achieving hemostasis. Plan was made for admission for observation for any clinical recurrent bleeding and to assess hemoglobin. Later in the evening several hours after colonoscopy repeat hemoglobin was 13.4 as would be expected. He did undergo CT scan of the abdomen pelvis post colonoscopy to assess the location of the mass and for radiographic staging. This revealed findings of transient colocolonic intussusception with a 4.3 x 3.7 cm colonic mass in the transverse colon with Hemoclip noted. There is also a small mass at the sigmoid colon measuring 1.7 cm which would be consistent with the submucosal hematoma with Hemoclip present. There is no definite evidence of metastatic disease. Patient was admitted for observation. He was limited to a clear liquid diet initially. He tolerated this without difficulty. The following morning he felt quite well without any complaints whatsoever. He states that initially he had some minimal passage of blood per rectum in the evening but this had resolved and he had been having some brown liquid stool. Repeat hemoglobin the following morning was 12.5 which would be within expected limits given the degree of bleeding and taking into account hemodilution. Patient had no evidence of any clinical bleeding since colonoscopy. Patient was counselled regarding seeking medical care immediately for any recurrent bleeding. Plan is for discharge home with close outpatient follow-up to assess pathology and discuss possible resection. He will likely require cardiology preoperative risk assessment prior to consideration of colon resection. Objective Vital signs: Temp Pulse Resp BP Pulse Ox 98.1 F 98 H 16 144/76 H 95 10/21/21 07:39 10/21/21 07:39 10/21/21 07:39 10/21/21 07:39 10/21/21 07:39 - *Routine Abdominal Exam Present: soft. Absent: tenderness Results Labs on day of discharge: Labs from last 24 hours 10/21/21 10/20/21 10/20/21 06:18 18:00 18:00 WBC 9.2 D RBC 4.07 L Hgb 12.5 L 13.4 L Hct 38.1 L 40.7 L MCV 93.6 MCH 30.6 MCHC 32.7 RDW 14.6 Plt Count 169 MPV 7.9 Neut % (Auto) 77.9 Lymph % (Auto) 14.2 [place] % (Auto) 7.2 Eos % (Auto) 0.2 Baso % (Auto) 0.5 Neut # (Auto) 7.2 Lymph # (Auto) 1.3 [place] #
--- NOTE | 2021-10-21 09:32 | HMH.ACPN2 ---
Internal Medicine - PN: Jelly *Date: 10/21/21 *Time: 09:32 Interval history: doing better - labs stable - discussed etoh use with pt Exam Vital signs and Labs for Last 24 Hours: Temp Pulse Resp BP Pulse Ox 98.1 F 98 H 16 144/76 H 95 10/21/21 07:39 10/21/21 07:39 10/21/21 07:39 10/21/21 07:39 10/21/21 07:39 Laboratory Results - last 24 hr 10/20/21 14:30: WBC 3.5 L, RBC 4.38 L, Hgb 13.8 L, Hct 42.1, MCV 95.9 H, MCH 31.4 H, MCHC 32.7, RDW 14.1, Plt Count 153, MPV 7.7, Neut % (Auto) 58.3, Lymph % (Auto) 30.9, [place] % (Auto) 9.2, Eos % (Auto) 0.8, Baso % (Auto) 0.9, Neut # (Auto) 2.1, Lymph # (Auto) 1.1, [place] # (Auto) 0.3, Eos # (Auto) 0.0, Baso # (Auto) 0.0 10/20/21 14:30: PT 11.9, INR 1.06 10/20/21 14:30: Sodium 137, Potassium 4.3, Chloride 100, Carbon Dioxide 24, Anion Gap 17.3 H, BUN 10, Creatinine 0.80, Estimated Creat Clear 102, Estimated GFR 98, Est GFR ( Amer) 119, Glucose 73 L, Calcium 8.5, Total Bilirubin 0.6, AST 94 H, ALT 49, Alkaline Phosphatase 53, Total Protein 6.6, Albumin 4.1, Globulin 2.5, Albumin/Globulin Ratio 1.6 10/20/21 18:00: Hgb 13.4 L, Hct 40.7 L 10/20/21 18:00: SARS-CoV-2 (PCR) Not detected, Influenza A Untype (PCR) Not detected, Influenza Type B (PCR) Not detected 10/21/21 06:18: WBC 9.2 D, RBC 4.07 L, Hgb 12.5 L, Hct 38.1 L, MCV 93.6, MCH 30.6, MCHC 32.7, RDW 14.6, Plt Count 169, MPV 7.9, Neut % (Auto) 77.9, Lymph % (Auto) 14.2, [place] % (Auto) 7.2, Eos % (Auto) 0.2, Baso % (Auto) 0.5, Neut # (Auto) 7.2, Lymph # (Auto) 1.3, [place] # (Auto) 0.7, Eos # (Auto) 0.0, Baso # (Auto) 0.0 I & O for Last 24 hours: Intake & Output 10/18/21 10/19/21 10/20/21 10/21/21 11:59 11:59 11:59 11:59 Intake Total 300 / 300 Balance 300 / 300 Weight 198 lb 14.4 oz - Constitutional no acute distress - *Routine HEENT Exam Head: Present: normocephalic Eye: Present: EOMI, PERRL ENT: Present: mucous membranes moist - *Routine Neck Exam Absent: JVD - *Routine Respiratory Exam Present: CTA bilaterally - *Routine Cardiovascular Exam Present: RRR - *Routine Abdominal Exam Present: soft - *Routine Extremities Exam Absent: calf tenderness - *Routine Skin Exam Present: intact - *Routine Neurological Exam Present: alert, oriented X3, CN II-XII intact - Routine Psychiatric Exam Present: cooperative. Absent: auditory hallucinations, visual hallucinations, tactile hallucinations Assessment and Plan (1) Colonic mass Status: Acute Category: Medical Code(s): K63.89 - Other specified diseases of intestine (2) Alcohol use disorder Status: Acute Category: Medical (3) HLD (hyperlipidemia) Status: Acute Qualifiers: Hyperlipidemia type: mixed hyperlipidemia Qualified Code(s): E78.2 - Mixed hyperlipidemia Category: Medical Code(s): E78.5 - Hyperlipidemia, unspecified (4) HTN (hypertension) Status: Acute Qualifiers: Hypertension type: essential hypertension Qualified Code(s): I10 - Essential (primary) hypertension Category: Medical Code(s): I10 - Essential (primary) hypertension (5) CAD (coronary artery disease) Status: Chronic Qualifiers: Coronary Disease-Associated Artery/Lesion type: [place] artery [place] vs. transplanted heart: [place] heart Associated angina: without angina Qualified Code(s): I25.10 - Atherosclerotic heart disease of [place] coronary artery without angina pectoris Category: Medical Code(s): I25.10 - Atherosclerotic heart disease of [place] coronary artery without angina pectoris
== END 2021-10-21 09:00 | disposition home or self-care (01) ==
LOC: 2ND 14:26
PROVIDERS: Admitting Provider Surgery; PCP Nurse Practitioner Family; Visit Provider Surgery
PROC: 0DJD8ZZ Inspection of Lower Intestinal Tract, Via Natural or Artificial Opening Endoscopic (ICD-10-PCS; CPT 45385; principal; 2021-10-20 11:30)
DX: D12.0 Benign neoplasm of cecum (principal); D12.3 Benign neoplasm of transverse colon; R19.5 Other fecal abnormalities; I25.10 Atherosclerotic heart disease of native coronary artery without angina pectoris; I10 Essential (primary) hypertension; E78.5 Hyperlipidemia, unspecified; Z86.16 Personal history of COVID-19; Z95.5 Presence of coronary angioplasty implant and graft; Z20.822 Contact with and (suspected) exposure to COVID-19
CPT/HCPCS: 45385; 45382; 74177; 80053; 85014; 85018; 85025; 85610; C9803; G0378; J2405; J2704; Q9967; U0003; U0005

== ENCOUNTER → 2021-10-31 07:24 | Outpatient (CLI) | payer OTHER, SELFPAY ==
[2021-10-31 07:58] LABS: Basophils # 0.1 K/mm3 (0-0.2); Basophils % 1.7 % (0.1-2.0); Eosinophils # 0.2 K/mm3 (0.0-0.4); Eosinophils % 5.4 % (0.1-12.0); Hematocrit 45.2 % (42.0-52.0); Lymphocytes # 1.3 K/mm3 (0.7-4.5); Lymphocytes % 29.2 % (10-50); Mean Corpuscular Hemoglobin 31.1 pg (27.0-31.2); Mean Corpuscular Volume 100.1 fl (80-94); Monocytes # 0.4 K/mm3 (0.1-1.0); Monocytes % 9.1 % (1.7-9.3); Neutrophils # 2.4 K/mm3 (1.8-7.8); Neutrophils % 54.6 % (37.0-80.0); Platelet Count 305 K/mm3 (142-424); Red Blood Count 4.51 M/mm3 (4.60-6.20); Red Cell Distribution Width 15.1 % (11.5-17.5); White Blood Count 4.3 K/mm3 (4.8-10.8)
[2021-10-31 08:06] LABS: INR 1.01 (0.9-1.1); Prothrombin Time 11.4 seconds (10.1-12.5)
[2021-10-31 08:37] LABS: Alanine Aminotransferase 84 U/L (12-78); Albumin Level 4.7 g/dl (3.5-5.0); Albumin/Globulin Ratio 1.5 (1.1-1.8); Alkaline Phosphatase 52 U/L (38-126); Anion Gap 12.5 mEq/L (5-15); Aspartate Amino Transferase 122 U/L (17-59); Bilirubin,Total 0.5 mg/dl (0.2-1.3); Blood Urea Nitrogen 11 mg/dl (9-20); Calcium 9.7 mg/dl (8.4-10.2); Carbon Dioxide 28 mmol/L (22.0-30.0); Chloride 104 mmol/L (98-107); Estimated Glomerular Filt Rate 115 ml/min (>60); GFR (African American) 139 ML/MIN (>60); Globulin 3.1 g/dL (1.3-3.2); Glucose 113 mg/dl (74-100); Potassium 4.5 mmoL/L (3.5-5.1); Sodium 140 mmol/L (136-145); Total Protein,Serum 7.8 g/dl (6.3-8.2)
[2021-11-01 12:17] LABS: CEA 3.1 ng/mL (0.0-4.7)
== END ==
PROVIDERS: Visit Provider Surgery
DX: Z01.812 Encounter for preprocedural laboratory examination (principal); Z11.52 Encounter for screening for COVID-19; K63.89 Other specified diseases of intestine
CPT/HCPCS: 36415; 80053; 82378; 85025; 85610; 86850; C9803; U0003; U0005

== ENCOUNTER 2021-11-02 06:17 | Inpatient (IN) | payer OTHER, SELFPAY ==
[2021-10-31 09:09] VITALS: BMI 30.2
[2021-11-02] VITALS (25 sets, daily range): BP systolic 97–146; BP diastolic 58–91; PULSE 56–85; RESP 12–20; TEMP 36.3–43; O2SAT 91–98
[2021-11-02 06:41] LABS: Coronavirus 19, PCR Not Detected (NotDetected); Influenza A, PCR Not Detected (NotDetected); Influenza B, PCR Not Detected (NotDetected)
--- NOTE | 2021-11-02 07:07 | P.PN_ITS ---
[facility] Anesthesia Checklist - Patient Identification Patient Identification: Arm Band - Structural Data Admitted From: Home Planned Operative Procedure/s: Right Colon Resection Consent for Planned Operative Procedure(s) Verified: Yes Verified Documents: Surgical Consent, History and Physical - NPO Status Verified Time NPO: 00:00 - Additional verifications Anesthesia Reactions: No Hx Blood Transfusions: No Blood Transfusion Reaction: No - Airway Assessment C-Spine Mobility Assessed: Yes (mp2) TMJ Mobility Assessed: Yes Dentition: Edentulous (upper and lower dentures) - Neurological Assessment Level of Consciousness: Awake, Alert - Anesthesia Plan Anesthesia Risk discussed: Yes Anesthesia Plan: Verified ASA Class: III Anesthesia Type: General [facility] History I have reviewed the patient's past medical history: Yes Medical History: Reports:: Coronary Artery Disease, Hyperlipidemia, Hypertension, Myocardial Infarction Denies:: Cancer, Diabetes Mellitus Type 1, Diabetes Mellitus Type 2, Internal Pacemaker, MRSA, Seizures *Have you ever received a pneumonia vaccine?: No *Have you received a flu vaccine this season?: No Other Medical History: Reports: Sinus Problems. Denies: Blood Transfusion Reaction Anesthesia experience/problems:: nac Other Surgeries: Yes: Cardiac Catheterization, Colonoscopy, Coronary Stent. No: Pacemaker Amputation: No Fractures: Yes (r ankle) - *Social History Last grade of school completed: High school graduate Smoking Status: Never smoker Alcohol Intake: current Alcohol Intake Frequency:: 3 or more drinks per day Substance Use Type: denies use *Occupational Status:: employed Housing: house Household Members: spouse *Travel in the last 8 weeks: None Family Hx:: Cancer, Diabetes, Heart Attack, Hyperlipidemia, Hypertension
--- NOTE | 2021-11-02 07:28 | HMH.PHAINT ---
HOME MEDICATION LIST VERIFIED USING LIST FROM [place] [facility]
--- NOTE | 2021-11-02 09:50 | P.PN_ITS ---
[facility] Anesthesia Record Part I Intake, IV Amount: 3,000 Estimated blood loss (mL): 50 Urine output (mL): 200 Blood Pressure: 134/80 SaO2: 96 Pulse Rate: 65 Respiratory Rate: 12 Temperature: 98.2 F Patient is:: Awake, Stable Stable to PACU at:: 09:50
--- NOTE | 2021-11-02 09:50 | HMH.OPNOTE ---
Date of procedure: 11/02/21 Pre-op Diagnosis:: Transverse colon mass Post-op Diagnosis:: Same Procedure performed:: Sigmoid resection proximal transverse colon with colocolonic end to end anastomosis Surgeon:: Kimani Mckeon MD PLEATING SUPERVISOR:: Vladimir Ching Anesthesia: GETA Estimated blood loss (mL): 25 Clinical Note:: Patient presents for colon resection. He is a 61-year-old male who had been referred by Lizbeth Michelle for colonoscopy and was seen in the office as initial consultation on 10/12/2021. He apparently did have a positive Cologuard. He underwent initial colonoscopy on 10/20/2021. He was found to have numerous large complex adenomatous polyps throughout the colon. He had numerous large tubular adenomas and a sessile serrated adenoma in the cecum. Most notable was a large colon mass in the transverse colon. Large biopsies of this revealed tubulovillous adenoma. He did have bleeding at the time of polypectomy in the sigmoid colon and this was controlled with hemoclips. Patient was admitted overnight for observation for hemoglobin stability and did quite well. He did have a CT scan after his colonoscopy which reveals mass in the transverse colon without any obvious metastatic disease. Patient does admit to regular daily alcohol consumption. He was seen in the office and discussion was held. He wished to pursue colon resection with probable right hemicolectomy. He did undergo preoperative CEA level which was 3.1. Operative findings:: He had a polypoid mass in the proximal transverse colon measuring estimated 35 mm. No obvious metastatic disease. He did have fatty liver with a couple of tiny intrahepatic nodules not necessarily consistent with metastatic disease. Operative note:: Patient was taken the operating room. Please note that patient had undergone mechanical and antibiotic bowel preparation prior to surgery. In the operating room he was placed in a supine position. General anesthesia was induced via endotracheal tube. Hernandez catheter was placed. Abdomen was prepped and draped in the standard surgical fashion. Limited midline incision was performed. Dissection was carried down through subcutaneous tissues and fascia using electrocautery. Abdomen was entered. The transverse colon was delivered through the wound. The area that had been marked with Racheal ink was identified. The lesion was palpable in the proximal transverse colon. This seems somewhat mobile and possibly consistent with noninvasive adenomatous lesion. Plan was made to perform limited resection initially with inspection of the lesion on the back table.: Was divided a generous distance proximal and distal to the lesion with the XIN 75 linear cutting stapling device. The omentum was dissected free from the colon with combination of electrocautery and Enseal device. Mesentery was scored for limited mesenteric resection. Mesentery was divided with the Enseal device. At this time the specimen was taken to the back table. Distal margin of the specimen was marked with a suture. Specimen was opened. There appeared to be polypoid mass in the central portion. There was a smaller adjacent adenomatous appearing polyp as well. Due to the fact that invasive carcinoma was not definitive plan was made to continue with merely limited resection at this time, avoiding extensive extended right hemicolectomy with regional lymphadenectomy, understanding the possibility pending final pathology of more extensive resection in the future. Colonic anastomosis was then performed in a 2 layer handsewn anastomosis fashion with 3-0 Surgilon seromuscular sutures without layer and a running full-thickness 3-0 Vicryl as an inner layer. Anastomosis appeared widely patent. Mesenteric defect was closed with a running 2-0 Vicryl. Limited abdominal surveillance was carried out of the liver. He had fatty liver. There were a couple palpable subtle nodules 1 in the left lobe and one in the righ
--- NOTE | 2021-11-02 10:55 | SUR.PHASEI ---
1032 called and provided Dashawn Rees, JOHN full detailed report on patient. 1035 Pt transported via bed to room 203. Pt in stable condition and left with Dashawn Rees, med/cardiothoracic surgeon at bedside.
--- NOTE | 2021-11-02 12:31 | HMH.ANESII ---
[facility] Anesthesia Record Part II Discharge Time: 10:35 Destination: Medical Surgical Department PACU nurse assessment reviewed?: Yes Patient Condition:: Good Anesthesia Complications:: None Swallowing reflex intact?: Yes Cyanosis?: No Blood Pressure: 116/69 Pulse Rate: 71 Temperature: 98.4 F Mental Status: Alert & Oriented Pain level:: 5 Nausea and/or vomitting:: None Intake, IV Amount: 0
[2021-11-02 14:42] LABS: Microscopic,Cath URINE MICROSCOPIC (MICROSCOPIC)
[2021-11-02 14:48] LABS: Appearance,Urine/Cath CLEAR (Clear); Bilirubin,Cath Negative (Negative); Blood, Urine/Cath Negative (Negative); Color,Urine/Cath YELLOW (Yellow); Glucose,Urine/Cath (UA) Negative (Negative); Ketones,Urine/Cath 2+ (Negative); Leukocyte Esterase,Cath Negative (Negative); Nitrate,Cath Negative (Negative); PH,Urine/Cath 5.5 (5.0-8.5); Protein,Urine/Cath TRACE (Negative); Specific Gravity, Urine/Cath >= 1.030 (1.005-1.030); Urobilinogen,Cath 0.2 EU/dl (0.2)
--- NOTE | 2021-11-02 15:08 | PC.NURSE ---
Addendum entered by Regina Rees RN 11/02/21 16:09: 14 MG OF MORPHINE WAS CLEARED FROM MORPHINE FREIGHT HUSTLER PUMP AT 1605 Original Note: PT IS RESTING IN BED WITH FAMILY AT BEDSIDE. PT IS USING THE MORPHINE FREIGHT HUSTLER PUMP FOR DISCOMFORT. TOLERATING ICE CHIPS. ALERT AND ORIENTED X4. DRESSING TO THE ABDOMEN C/D/I. PT REQUESTED FOR SKUDS TO BE REMOVED BECAUSE THEY WERE UNCOMFORTABLE. LUNG SOUNDS CLEAR. ABDOMEN SOFT/TENDER WITH HYPOACTIVE BOWEL SOUNDS. VSS. WILL CONTINUE TO MONITOR.
[2021-11-02 15:39] LABS: WBC,Urine/Cath Occasional #/hpf (0-3)
[2021-11-02 15:40] LABS: Bacteria,Urine/Cath TRACE /lpf; Transitional Epi Cells,Ur/Cath OCC #/lpf (0-3)
--- NOTE | 2021-11-02 21:49 | PC.NURSE ---
7mg Morphine cleared from EYE SPECIALIST pump at 193
[2021-11-03] VITALS (13 sets, daily range): BP systolic 109–151; BP diastolic 71–85; PULSE 59–91; RESP 14–18; TEMP 36.3–37.7; O2SAT 91–98; BMI 30.2; BMI 30.7
[2021-11-03 07:04] LABS: Basophils % 0.1 % (0.1-2.0); Hematocrit 37.5 % (42.0-52.0); Hemoglobin 11.9 g/dL (14.1-18.0); Lymphocytes # 1.1 K/mm3 (0.7-4.5); Mean Corpuscular HGB Conc 31.8 g/dL (31.8-35.4); Mean Corpuscular Hemoglobin 31.2 pg (27.0-31.2); Mean Corpuscular Volume 98.1 fl (80-94); Mean Platelet Volume 8.5 fl (7.4-10.4); Monocytes # 0.7 K/mm3 (0.1-1.0); Monocytes % 6.8 % (1.7-9.3); Neutrophils # 8.7 K/mm3 (1.8-7.8); Neutrophils % 83.1 % (37.0-80.0); Platelet Count 227 K/mm3 (142-424); Red Blood Count 3.82 M/mm3 (4.60-6.20); Red Cell Distribution Width 14.7 % (11.5-17.5); White Blood Count 10.4 K/mm3 (4.8-10.8)
[2021-11-03 07:18] LABS: Alanine Aminotransferase 59 U/L (12-78); Albumin Level 3.8 g/dl (3.5-5.0); Albumin/Globulin Ratio 1.3 (1.1-1.8); Alkaline Phosphatase 39 U/L (38-126); Anion Gap 6.9 mEq/L (5-15); Aspartate Amino Transferase 54 U/L (17-59); Bilirubin,Total 0.8 mg/dl (0.2-1.3); Blood Urea Nitrogen 9 mg/dl (9-20); Calcium 8.8 mg/dl (8.4-10.2); Carbon Dioxide 30 mmol/L (22.0-30.0); Chloride 103 mmol/L (98-107); Creatinine Clearance Estimated 101 mL/min (50-200); Estimated Glomerular Filt Rate 115 ml/min (>60); GFR (African American) 139 ML/MIN (>60); Globulin 2.9 g/dL (1.3-3.2); Glucose 117 mg/dl (74-100); Potassium 3.9 mmoL/L (3.5-5.1); Sodium 136 mmol/L (136-145); Total Protein,Serum 6.7 g/dl (6.3-8.2)
--- NOTE | 2021-11-03 07:19 | HMH.PHAVTE ---
[facility] Pharmacy VTE Monitoring - Patient Demographics Allergies/Adverse Reactions: Patient Allergies diphenhydramine [From Benadryl] Allergy (Verified 10/31/21 09:09) hydrocodone Allergy (Verified 10/31/21 09:09) nitroglycerin Allergy (Verified 10/31/21 09:09) atorvastatin [From Lipitor] Adverse Reaction (Severe, Verified 10/31/21 09:09) Height: 1.75 m Weight: 92.487 kg - VTE Risk Labs: VTE Related Lab Results Hgb 11.9 g/dL (14.1-18.0) L 11/03/21 06:33 Hct 37.5 % (42.0-52.0) L 11/03/21 06:33 Plt Count 227 K/mm3 (142-424) D 11/03/21 06:33 Was VTE Risk Assessment Performed: Yes VTE Score: 1 Clinical Trial Participant: No - Prophylaxis VTE Prophylaxis Ordered?: Yes Types of VTE Prophylaxis: TEDS Knee High, Pharmacological Location of Applied Device: Bilateral Lower Extremeties Pharmacologic Type: Enoxaparin
--- NOTE | 2021-11-03 08:11 | PC.NURSE ---
Cleared 10.1 mg Morphine from pain pump at this time
--- NOTE | 2021-11-03 13:02 | HMH.ACPN2 ---
Internal Medicine - PN: Subj *Date: 11/03/21 *Time: 18:15 Interval history: gastro course and op note revd pt w/adeq analgesia on current regimen not much in the way of bowel sounds will mobilize known gout cad s/p stent deployment clinically tolerating procedure well Exam Vital signs and Labs for Last 24 Hours: Temp Pulse Resp BP Pulse Ox 97.8 F 63 18 144/78 H 95 11/03/21 11:17 11/03/21 11:17 11/03/21 11:17 11/03/21 11:17 11/03/21 11:17 Laboratory Results - last 24 hr 11/02/21 07:35: Urine Color Yellow, Urine Appearance Clear, Urine pH 5.5, Ur Specific [place] >= 1.030, Urine Protein Trace, Urine Glucose (UA) Negative, Urine Ketones 2+, Urine Blood Negative, Urine Nitrate Negative, Urine Bilirubin Negative, Urine Urobilinogen 0.2, Ur Leukocyte Esterase Negative, Urine RBC None, Urine WBC Occasional, Ur Squamous Epith Cells None, Ur Transition Epith Cell Occ, Urine Bacteria Trace 11/03/21 06:33: WBC 10.4 D, RBC 3.82 L, Hgb 11.9 L, Hct 37.5 L, MCV 98.1 H, MCH 31.2, MCHC 31.8, RDW 14.7, Plt Count 227 D, MPV 8.5, Neut % (Auto) 83.1 H, Lymph % (Auto) 10.0, [place] % (Auto) 6.8, Eos % (Auto) 0.0 L, Baso % (Auto) 0.1, Neut # (Auto) 8.7 H, Lymph # (Auto) 1.1, [place] # (Auto) 0.7, Eos # (Auto) 0.0, Baso # (Auto) 0.0 11/03/21 06:33: Sodium 136, Potassium 3.9, Chloride 103, Carbon Dioxide 30, Anion Gap 6.9, BUN 9, Creatinine 0.70, Estimated Creat Clear 101, Estimated GFR 115, Est GFR ( Amer) 139, Glucose 117 H, Calcium 8.8, Total Bilirubin 0.8, AST 54 D, ALT 59 D, Alkaline Phosphatase 39, Total Protein 6.7, Albumin 3.8, Globulin 2.9, Albumin/Globulin Ratio 1.3 I & O for Last 24 hours: Intake & Output 10/31/21 11/01/21 11/02/21 11/03/21 23:59 23:59 23:59 23:59 Intake Total 3622 / 3622 0 / 0 Output Total 2600 / 2600 Balance 3622 / 2922 -2600 / -2600 Weight 205 lb 203 lb 9 oz 205 lb 0.478 oz - Constitutional no acute distress - *Routine HEENT Exam Head: Present: normocephalic Eye: Present: EOMI, PERRL ENT: Present: mucous membranes moist - *Routine Neck Exam Present: supple. Absent: lymphadenopathy - *Routine Respiratory Exam Present: CTA bilaterally - *Routine Cardiovascular Exam Present: RRR - *Routine Abdominal Exam Present: tenderness. Absent: normoactive bowel sounds - *Routine Extremities Exam Absent: cyanosis, clubbing, edema - *Routine Skin Exam Present: warm. Absent: rash - *Routine Neurological Exam Present: alert, oriented X3 Assessment and Plan (1) Colonic mass Status: Acute Category: Medical Code(s): K63.89 - Other specified diseases of intestine (2) Positive colorectal cancer screening using Cologuard test Status: Acute Category: Medical Code(s): R19.5 - Other fecal abnormalities - Assessment and plan all Dx Assessment and Plan for all problems:: will follow w/surgery
--- NOTE | 2021-11-03 15:01 | P.PN_ITS ---
Subjective Narrative: Patient doing well. Pain controlled. Complains of some minor gas and bloating. No nausea Progress Note: A&P Assessment and Plan for All Diagnoses:: DC Hernandez. May have some simethicone. Increase ambulation. Incentive spirometer Exam Vital signs and Labs for Last 24 Hours: Temp Pulse Resp BP Pulse Ox 98.7 F 73 18 148/81 H 95 11/03/21 13:56 11/03/21 13:56 11/03/21 13:56 11/03/21 13:56 11/03/21 13:56 Laboratory Results - last 24 hr 11/02/21 07:35: Urine Color Yellow, Urine Appearance Clear, Urine pH 5.5, Ur Specific [place] >= 1.030, Urine Protein Trace, Urine Glucose (UA) Negative, Urine Ketones 2+, Urine Blood Negative, Urine Nitrate Negative, Urine Bilirubin Negative, Urine Urobilinogen 0.2, Ur Leukocyte Esterase Negative, Urine RBC None, Urine WBC Occasional, Ur Squamous Epith Cells None, Ur Transition Epith Cell Occ, Urine Bacteria Trace 11/03/21 06:33: WBC 10.4 D, RBC 3.82 L, Hgb 11.9 L, Hct 37.5 L, MCV 98.1 H, MCH 31.2, MCHC 31.8, RDW 14.7, Plt Count 227 D, MPV 8.5, Neut % (Auto) 83.1 H, Lymph % (Auto) 10.0, [place] % (Auto) 6.8, Eos % (Auto) 0.0 L, Baso % (Auto) 0.1, Neut # (Auto) 8.7 H, Lymph # (Auto) 1.1, [place] # (Auto) 0.7, Eos # (Auto) 0.0, Baso # (Auto) 0.0 11/03/21 06:33: Sodium 136, Potassium 3.9, Chloride 103, Carbon Dioxide 30, Anion Gap 6.9, BUN 9, Creatinine 0.70, Estimated Creat Clear 101, Estimated GFR 115, Est GFR ( Amer) 139, Glucose 117 H, Calcium 8.8, Total Bilirubin 0.8, AST 54 D, ALT 59 D, Alkaline Phosphatase 39, Total Protein 6.7, Albumin 3.8, Globulin 2.9, Albumin/Globulin Ratio 1.3 I & O for Last 24 hours: Intake & Output 11/01/21 11/02/21 11/03/21 11/04/21 11:59 11:59 11:59 11:59 Intake Total 3000 / 3000 622 / 622 0 / 0 Output Total 2600 / 2600 Balance 3000 / 3000 -1977 / 0 / 0 Weight 203 lb 9 oz 203 lb 14.4 oz 205 lb 0.478 oz - *Routine Abdominal Exam Present: wound
--- NOTE | 2021-11-03 18:35 | PC.NURSE ---
12 MG CLEARED FROM PHOTO CARTOGRAPHER
[2021-11-04] VITALS (13 sets, daily range): BP systolic 122–160; BP diastolic 74–89; PULSE 69–87; RESP 16–18; TEMP 36.6–37.3; O2SAT 93–96; BMI 30.7
--- NOTE | 2021-11-04 07:22 | PC.NURSE ---
Patient has used 7mg of morphine this RN's shift.
--- NOTE | 2021-11-04 09:54 | HMH.GSPN ---
Subjective Patient reports: no new complaints Narrative: Mr. Michelle is a 61-year-old male status post segmental colectomy. Doing well. Flatus. No bowel movements. No nausea or emesis. Progress Note: A&P (1) Colonic mass Status: Acute (2) Positive colorectal cancer screening using Cologuard test Status: Acute Assessment and Plan for All Diagnoses:: 1. Colon polyp. Not amenable to endoscopic resection. Status post segmental colectomy. Advancing appropriately. Advance to clear liquid diet. 10 you postoperative care. Exam Vital signs and Labs for Last 24 Hours: Temp Pulse Resp BP Pulse Ox 98.9 F 74 16 146/82 H 96 11/04/21 09:49 11/04/21 09:49 11/04/21 09:49 11/04/21 09:49 11/04/21 09:49 I & O for Last 24 hours: Intake & Output 11/01/21 11/02/21 11/03/21 11/04/21 11:59 11:59 11:59 11:59 Intake Total 3000 / 3000 622 / 622 0 / 0 Output Total 2600 / 2600 2575 / 2575 Balance 3000 / 3000 -1977 / -1977 -2575 / -2575 Weight 92.334 kg 92.487 kg 93 kg - *Routine Abdominal Exam Comments: Soft. Minimally distended. Nontender.
--- NOTE | 2021-11-04 14:03 | HMH.ACPN2 ---
Internal Medicine - PN: Subj *Date: 11/04/21 *Time: 14:03 Interval history: looks brighter pos flatus mobilizing Exam Vital signs and Labs for Last 24 Hours: Temp Pulse Resp BP Pulse Ox 98.4 F 83 16 122/74 93 L 11/04/21 13:47 11/04/21 13:47 11/04/21 13:47 11/04/21 13:47 11/04/21 13:47 I & O for Last 24 hours: Intake & Output 11/01/21 11/02/21 11/03/21 11/04/21 23:59 23:59 23:59 23:59 Intake Total 3622 / 3622 0 / 0 0 / 0 Output Total 3600 / 4425 1575 / 1575 Balance 3622 / 2922 -3600 / -4425 -1575 / -1575 Weight 203 lb 9 oz 205 lb 0.478 oz 205 lb 0.478 oz - Constitutional no acute distress - *Routine HEENT Exam Head: Present: normocephalic Eye: Present: EOMI, PERRL ENT: Present: mucous membranes moist - *Routine Neck Exam Present: supple. Absent: lymphadenopathy - *Routine Respiratory Exam Present: CTA bilaterally - *Routine Cardiovascular Exam Present: RRR - *Routine Abdominal Exam Present: soft, tenderness. Absent: rigid - *Routine Extremities Exam Absent: cyanosis, clubbing, edema - *Routine Skin Exam Present: warm. Absent: rash - *Routine Neurological Exam Present: alert, oriented X3 Assessment and Plan (1) Colonic mass Status: Acute Category: Medical Code(s): K63.89 - Other specified diseases of intestine (2) Positive colorectal cancer screening using Cologuard test Status: Acute Category: Medical Code(s): R19.5 - Other fecal abnormalities - Assessment and plan all Dx Assessment and Plan for all problems:: continue routine post-op care
[2021-11-04 14:28] LABS: Basophils # 0.1 K/mm3 (0-0.2); Basophils % 1.1 % (0.1-2.0); Eosinophils # 0.1 K/mm3 (0.0-0.4); Eosinophils % 0.7 % (0.1-12.0); Hematocrit 40.2 % (42.0-52.0); Hemoglobin 13.1 g/dL (14.1-18.0); Lymphocytes # 1.1 K/mm3 (0.7-4.5); Lymphocytes % 16.2 % (10-50); Mean Corpuscular HGB Conc 32.6 g/dL (31.8-35.4); Mean Corpuscular Volume 95.3 fl (80-94); Mean Platelet Volume 8.8 fl (7.4-10.4); Monocytes # 0.5 K/mm3 (0.1-1.0); Monocytes % 7.6 % (1.7-9.3); Neutrophils # 5.1 K/mm3 (1.8-7.8); Neutrophils % 74.4 % (37.0-80.0); Platelet Count 243 K/mm3 (142-424); Red Blood Count 4.22 M/mm3 (4.60-6.20); Red Cell Distribution Width 14.5 % (11.5-17.5); White Blood Count 6.8 K/mm3 (4.8-10.8)
[2021-11-04 14:35] LABS: Chloride 95 mmol/L (98-107); Sodium 132 mmol/L (136-145)
[2021-11-04 14:36] LABS: Potassium 3.6 mmoL/L (3.5-5.1)
[2021-11-04 14:38] LABS: Alanine Aminotransferase 39 U/L (12-78); Albumin/Globulin Ratio 1.2 (1.1-1.8); Alkaline Phosphatase 46 U/L (38-126); Anion Gap 7.6 mEq/L (5-15); Aspartate Amino Transferase 36 U/L (17-59); Blood Urea Nitrogen 6 mg/dl (9-20); Calcium 8.9 mg/dl (8.4-10.2); Carbon Dioxide 33 mmol/L (22.0-30.0); Creatinine Clearance Estimated 102 mL/min (50-200); Estimated Glomerular Filt Rate 98 ml/min (>60); GFR (African American) 119 ML/MIN (>60); Globulin 3.3 g/dL (1.3-3.2); Glucose 128 mg/dl (74-100); Total Protein,Serum 7.3 g/dl (6.3-8.2)
--- NOTE | 2021-11-04 18:32 | PC.NURSE ---
10.9 MG CLEARED FROM WIRE WORKER
[2021-11-05] VITALS (7 sets, daily range): BP systolic 113–159; BP diastolic 74–89; PULSE 62–95; RESP 16–18; TEMP 36.5–37.2; O2SAT 93–97; BMI 30.7
--- NOTE | 2021-11-05 06:57 | PC.NURSE ---
Patient has used 4mg of morphine from his [employer] TESTER pump this RN's shift.
--- NOTE | 2021-11-05 09:26 | HMH.GSPN ---
Subjective Narrative: Mr. Michelle is a 61-year-old male status post segmental colectomy for advanced colon polyp. Continues to do well. Pain is improving. Continues to pass flatus. Abdominal distention has improved. Tolerating liquids. Goal to ambulate without difficulty. Progress Note: A&P (1) Colonic mass Status: Acute (2) Positive colorectal cancer screening using Cologuard test Status: Acute Assessment and Plan for All Diagnoses:: 1. Colon polyp. Status post segmental colectomy. Advance diet. Transition to oral pain medication. Discharge planning. Exam Vital signs and Labs for Last 24 Hours: Temp Pulse Resp BP Pulse Ox 97.7 F 83 16 144/83 H 97 11/05/21 07:37 11/05/21 07:37 11/05/21 07:37 11/05/21 07:37 11/05/21 07:37 Laboratory Results - last 24 hr 11/04/21 14:08: WBC 6.8 D, RBC 4.22 L, Hgb 13.1 L, Hct 40.2 L, MCV 95.3 H, MCH 31.0, MCHC 32.6, RDW 14.5, Plt Count 243, MPV 8.8, Neut % (Auto) 74.4, Lymph % (Auto) 16.2, [place] % (Auto) 7.6, Eos % (Auto) 0.7, Baso % (Auto) 1.1, Neut # (Auto) 5.1, Lymph # (Auto) 1.1, [place] # (Auto) 0.5, Eos # (Auto) 0.1, Baso # (Auto) 0.1 11/04/21 14:08: Sodium 132 L, Potassium 3.6, Chloride 95 L, Carbon Dioxide 33 H, Anion Gap 7.6, BUN 6 L D, Creatinine 0.80, Estimated Creat Clear 102, Estimated GFR 98, Est GFR ( Amer) 119, Glucose 128 H, Calcium 8.9, Total Bilirubin 1.0, AST 36 D, ALT 39 D, Alkaline Phosphatase 46, Total Protein 7.3, Albumin 4.0, Globulin 3.3 H, Albumin/Globulin Ratio 1.2 I & O for Last 24 hours: Intake & Output 11/02/21 11/03/21 11/04/21 11/05/21 11:59 11:59 11:59 12:59 Intake Total 3000 / 3000 622 / 622 0 / 0 780 / 780 Output Total 2600 / 2600 2575 / 2575 1350 / 1350 Balance 3000 / 3000 -1977 / -1977 -2575 / -2575 - / -570 Weight 92.334 kg 92.487 kg 93 kg 93 kg - Constitutional no acute distress - *Routine Abdominal Exam Present: soft
--- NOTE | 2021-11-05 09:52 | PC.NURSE ---
1 MG CLEARED FROM PT WIRE SETTER PUMP. WIRE SETTER D/C PER J HOURIGAN
--- NOTE | 2021-11-05 13:13 | P.PN_ITS ---
Internal Medicine - PN: Subj *Date: 11/05/21 *Time: 13:13 Interval history: brighter pos flatus active bowel sounds Exam Vital signs and Labs for Last 24 Hours: Temp Pulse Resp BP Pulse Ox 99.0 F 68 16 137/84 97 11/05/21 10:59 11/05/21 10:59 11/05/21 10:59 11/05/21 10:59 11/05/21 10:59 Laboratory Results - last 24 hr 11/04/21 14:08: WBC 6.8 D, RBC 4.22 L, Hgb 13.1 L, Hct 40.2 L, MCV 95.3 H, MCH 31.0, MCHC 32.6, RDW 14.5, Plt Count 243, MPV 8.8, Neut % (Auto) 74.4, Lymph % (Auto) 16.2, [place] % (Auto) 7.6, Eos % (Auto) 0.7, Baso % (Auto) 1.1, Neut # (Auto) 5.1, Lymph # (Auto) 1.1, [place] # (Auto) 0.5, Eos # (Auto) 0.1, Baso # (Auto) 0.1 11/04/21 14:08: Sodium 132 L, Potassium 3.6, Chloride 95 L, Carbon Dioxide 33 H, Anion Gap 7.6, BUN 6 L D, Creatinine 0.80, Estimated Creat Clear 102, Estimated GFR 98, Est GFR ( Amer) 119, Glucose 128 H, Calcium 8.9, Total Bilirubin 1.0, AST 36 D, ALT 39 D, Alkaline Phosphatase 46, Total Protein 7.3, Albumin 4.0, Globulin 3.3 H, Albumin/Globulin Ratio 1.2 I & O for Last 24 hours: Intake & Output 11/02/21 11/03/21 11/04/21 11/06/21 23:59 23:59 23:59 00:59 Intake Total 3622 / 3622 0 / 0 300 / 300 720 / 720 Output Total 3600 / 4425 2024 / 2925 900 / 900 Balance 3622 / 2922 -3600 / -4425 -1725 / -2625 -180 / -180 Weight 203 lb 9 oz 205 lb 0.478 oz 205 lb 0.478 oz 205 lb 0.478 oz - Constitutional no acute distress - *Routine HEENT Exam Head: Present: normocephalic Eye: Present: EOMI, PERRL ENT: Present: mucous membranes moist - *Routine Neck Exam Present: supple. Absent: lymphadenopathy - *Routine Respiratory Exam Present: CTA bilaterally - *Routine Cardiovascular Exam Present: RRR - *Routine Abdominal Exam Present: normoactive bowel sounds, tenderness. Absent: distended - *Routine Extremities Exam Absent: cyanosis, clubbing, edema - *Routine Skin Exam Present: warm. Absent: rash - *Routine Neurological Exam Present: alert, oriented X3 Assessment and Plan (1) Colonic mass Status: Acute Category: Medical Code(s): K63.89 - Other specified diseases of intestine (2) Positive colorectal cancer screening using Cologuard test Status: Acute Category: Medical Code(s): R19.5 - Other fecal abnormalities - Assessment and plan all Dx Assessment and Plan for all problems:: continue post-op regimen
[2021-11-06] VITALS: BP 115/65; PULSE 65; RESP 16; TEMP 36.8; O2SAT 95
[2021-11-06 04:00] VITALS: BP 121/73; PULSE 67; RESP 17; TEMP 36.9; O2SAT 91
[2021-11-06 05:00] VITALS: BMI 28.9
--- NOTE | 2021-11-06 06:58 | HMH.GSPN ---
Subjective Narrative: Pt sleeping. On regular diet. Progress Note: A&P (1) Colonic mass Status: Acute (2) Positive colorectal cancer screening using Cologuard test Status: Acute Assessment and Plan for All Diagnoses:: Possible discharge later. Exam Vital signs and Labs for Last 24 Hours: Temp Pulse Resp BP Pulse Ox 98.4 F 67 17 121/73 91 L 11/06/21 04:00 11/06/21 04:00 11/06/21 04:00 11/06/21 04:00 11/06/21 04:00 I & O for Last 24 hours: Intake & Output 11/03/21 11/04/21 11/05/21 11/06/21 10:59 10:59 11:59 11:59 Intake Total 720 / 720 Output Total 550 / 550 Balance 170 / 170 Weight 193 lb 4.8 oz - Constitutional no acute distress
--- NOTE | 2021-11-06 07:42 | PC.WOUNDNOTE ---
late entry - no acute changes during my shift. Pt c/o of moderate pain once, medicated per OCT. Pt states he has had a couple of BMs since his surgery and is passing flatus. He also stated that he has been up walking around the unit. Active BS, tolerating regular diet, ABD drsg C/D/I. Pt slept majority of my shift. No other complaints or needs voiced at this time. Call light in reach.
[2021-11-06 08:00] VITALS: BP 118/69; PULSE 105; RESP 16; TEMP 36.6; O2SAT 94
--- NOTE | 2021-11-06 09:27 | HMH.ACPN2 ---
Internal Medicine - PN: Subj *Date: 11/06/21 *Time: 08:15 Interval history: pt sitting up in chair states he is feeling well, states passing gas Exam Vital signs and Labs for Last 24 Hours: Temp Pulse Resp BP Pulse Ox 97.8 F 105 H 16 118/69 94 L 11/06/21 08:00 11/06/21 08:00 11/06/21 08:00 11/06/21 08:00 11/06/21 08:00 I & O for Last 24 hours: Intake & Output 11/03/21 11/04/21 11/05/21 11/06/21 10:59 10:59 11:59 11:59 Intake Total 720 / 720 Output Total 550 / 550 Balance 170 / 170 Weight 193 lb 4.8 oz - Constitutional no acute distress - *Routine HEENT Exam Head: Present: normocephalic Eye: Present: PERRL ENT: Present: mucous membranes moist - *Routine Neck Exam Present: supple. Absent: lymphadenopathy - *Routine Respiratory Exam Present: CTA bilaterally - *Routine Cardiovascular Exam Present: RRR - *Routine Abdominal Exam Present: soft, normoactive bowel sounds. Absent: tenderness, distended Comments: dressing c/d/i - *Routine Extremities Exam Absent: cyanosis, clubbing, edema - *Routine Skin Exam Present: warm. Absent: rash Comments: dressing to abd c/d/i - *Routine Neurological Exam Present: alert, oriented X3 Assessment and Plan (1) Colonic mass Status: Acute Category: Medical Code(s): K63.89 - Other specified diseases of intestine (2) Positive colorectal cancer screening using Cologuard test Status: Acute Category: Medical Code(s): R19.5 - Other fecal abnormalities - Assessment and plan all Dx Assessment and Plan for all problems:: rounded with dr wilson all orders per dr wilson ok to dc if ok with surgery
--- NOTE | 2021-11-07 13:14 | CARE MANAGER ---
Spoke with patient regarding discharge from hospital. He states they took out every other staple yesterday. He doesn't follow up with Dr. Mckeon until 11/14/21. Discussed that if it appears that there is infection around the april or has pain, redness, etc. to notify MD. Denies any questions or concerns. Has not had much pain, but did medical assistant supervisor prescriptions yesterday. JOHN Prescott
--- NOTE | 2021-11-23 15:06 | HMH.GSHP ---
HPI HPI: Patient presents for colon resection with planned scheduled admission postoperatively. He is a 61-year-old male who had been referred by Lizbeth Michelle for colonoscopy and was seen in the office as initial consultation on 10/12/2021. He apparently did have a positive Cologuard. He underwent initial colonoscopy on 10/20/2021. He was found to have numerous large complex adenomatous polyps throughout the colon. He had numerous large tubular adenomas and a sessile serrated adenoma in the cecum. Most notable was a large colon mass in the transverse colon. Large biopsies of this revealed tubulovillous adenoma. He did have bleeding at the time of polypectomy in the sigmoid colon and this was controlled with hemoclips. Patient was admitted overnight for observation for hemoglobin stability and did quite well. He did have a CT scan after his colonoscopy which reveals mass in the transverse colon without any obvious metastatic disease. Patient does admit to regular daily alcohol consumption. Options were discussed with the patient and plan was made for resection of the colon mass with planned scheduled admission as stated in office note dated 10/26/21. [facility] History I have reviewed the patient's past medical history: Yes Medical History: Reports:: Coronary Artery Disease, Hyperlipidemia, Hypertension, Myocardial Infarction Denies:: Cancer, Diabetes Mellitus Type 1, Diabetes Mellitus Type 2, Internal Pacemaker, MRSA, Seizures *Have you ever received a pneumonia vaccine?: No *Have you received a flu vaccine this season?: No Other Medical History: Reports: Sinus Problems. Denies: Blood Transfusion Reaction Anesthesia experience/problems:: nac Other Surgeries: Yes: Cardiac Catheterization, Colonoscopy, Colon Resection, Coronary Stent, EGD. No: Pacemaker Amputation: No Fractures: Yes (r ankle) - *Social History Last grade of school completed: High school graduate Smoking Status: Former smoker Alcohol Intake: current Alcohol Intake Frequency:: 3 or more drinks per day Substance Use Type: denies use *Occupational Status:: employed Housing: house Household Members: spouse *Travel in the last 8 weeks: None Family Hx:: Cancer, Diabetes, Heart Attack, Hyperlipidemia, Hypertension Review of Systems - Review of Systems Review of systems:: pertinent systems reviewed and negative unless documented below Meds Home Medications Medication Instructions Recorded Confirmed Type milk thistle 175 mg tablet 350 mg PO DAILY tab 10/05/20 11/14/21 History cholecalciferol (vitamin D3) 25 25 mcg PO DAILY 10/25/20 11/14/21 History mcg (1,000 unit) capsule loratadine 10 mg tablet 10 mg PO DAILY 09/11/21 11/14/21 History sildenafil 25 mg tablet 25 mg PO DAILY PRN #10 tab 09/11/21 11/14/21 Rx Aspirin [Low Dose Aspirin EC] 81 mg PO DAILY 10/16/21 11/14/21 History Rosuvastatin Calcium 10 mg PO HS 10/16/21 11/14/21 History allopurinoL [Allopurinol 100mg 100 mg PO DAILY 10/16/21 11/14/21 History tablet] Allergies Allergy/AdvReac Type Severity Reaction Status Date / Time diphenhydramine Allergy Verified 11/14/21 13:14 [From Benadryl] hydrocodone Allergy Verified 11/14/21 13:14 nitroglycerin Allergy Verified 11/14/21 13:14 atorvastatin [From Lipitor] AdvReac Severe Verified 11/14/21 13:14 Exam Vital signs and Labs for Last 24 Hours: Temp Pulse Resp BP Pulse Ox 97.8 F 105 H 16 118/69 94 L 11/06/21 08:00 11/06/21 08:00 11/06/21 08:00 11/06/21 08:00 11/06/21 08:00 - Constitutional no acute distress - *Routine HEENT Exam Head: Present: normocephalic Eye: Present: EOMI, PERRL ENT: Present: mucous membranes moist - *Routine Neck Exam Present: supple. Absent: lymphadenopathy - *Routine Respiratory Exam Present: CTA bilaterally - *Routine Cardiovascular Exam Present: RRR - *Routine Abdominal Exam Present: soft, normoactive bowel sounds. Absent: tenderness - *Routine Rectal Exam Rectal:: deferre
== END 2021-11-06 12:30 | disposition home or self-care (01) | DRG 331 ==
LOC: 2ND 10:42
PROVIDERS: Family Medicine; Admitting Provider Surgery; PCP Nurse Practitioner Family; Visit Provider Surgery
PROC: 0DBL0ZZ Excision of Transverse Colon, Open Approach (ICD-10-PCS; CPT 44140; principal; 2021-11-02 07:30)
DX: D37.4 Neoplasm of uncertain behavior of colon (principal); I25.10 Atherosclerotic heart disease of native coronary artery without angina pectoris; E78.5 Hyperlipidemia, unspecified; I10 Essential (primary) hypertension; I25.2 Old myocardial infarction; Z20.822 Contact with and (suspected) exposure to COVID-19
CPT/HCPCS: 44140; 36415; 80053; 81001; 82378; 85025; 85610; 86850; 96372; 96374; C9803; J1335; J2405; J2710; U0003; U0005

== ENCOUNTER → 2022-05-23 07:32 | Outpatient (CLI) | payer OTHER, SELFPAY | PROVIDERS: PCP Nurse Practitioner Family; Visit Provider Surgery | DX: Z01.812 Encounter for preprocedural laboratory examination (principal); Z20.822 Contact with and (suspected) exposure to COVID-19; Z12.11 Encounter for screening for malignant neoplasm of colon | CPT/HCPCS: C9803; U0003; U0005 ==

== ENCOUNTER 2022-05-25 11:29 | Day surgery (SDC) | payer OTHER, SELFPAY ==
[2022-05-25 11:57] VITALS: BP 168/101; PULSE 93; RESP 20; TEMP 36.2; O2SAT 93; BMI 29.8
--- NOTE | 2022-05-25 12:35 | EXP.ANES.CKL ---
PFSH PFS Medical History (Updated 05/25/22 @ 11:51 by Jaimie Tello RN) Abnormal EKG Asymmetrical hearing loss CAD (coronary artery disease) Colonoscopy planned Hand pain, right History of chest pain History of COVID-19 History of gastroesophageal reflux (GERD) History of heart attack History of syncope HLD (hyperlipidemia) HTN (hypertension) Hyperlipidemia Hypertension Mixed conductive and sensorineural hearing loss of both ears Myocardial infarction Numbness of finger Tinnitus Urinary tract infection Surgical History (Updated 05/25/22 @ 11:51 by Jaimie Tello RN) History of ankle surgery History of bowel resection History of esophagogastroduodenoscopy (EGD) History of heart artery stent Family History (Updated 05/23/22 @ 15:59 by Ca Clark CMA) Other Cancer Diabetes Heart attack Hyperlipidemia Hypertension Social History (Updated 05/25/22 @ 11:54 by Jaimie Tello RN) Smoking Status: Former smoker how long ago did patient quit smokin years ago alcohol intake: current substance use type: denies use current occupational status: employed Travel in the last 8 weeks: None household members: spouse housing: house 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 current occupational exposures/hazards: Yes caffeine: Yes [facility] Anesthesia Checklist Patient Identification Patient Identification: Arm Band Structural Data Admitted From: Home Planned Operative Procedure/s: colonoscopy Consent for Planned Operative Procedure(s) Verified: Yes Verified Documents: Surgical Consent and History and Physical NPO Status Verified Time NPO: 00:00 Additional verifications Anesthesia Reactions: No Hx Blood Transfusions: No Blood Transfusion Reaction: No Airway Assessment C-Spine Mobility Assessed: Yes TMJ Mobility Assessed: Yes Dentition: Edentulous Neurological Assessment Level of Consciousness: Awake and Alert Anesthesia Plan Anesthesia Risk discussed: Yes Anesthesia Plan: Verified ASA Class: III Anesthesia Type: MAC
[2022-05-25 12:56] VITALS: O2SAT 95
--- NOTE | 2022-05-25 13:49 | HMH.SCOPE ---
Procedure: Date: 05/25/22 Patient Date of :: 1960 Procedure Performed:: Total colonoscopy to ileocecal valve with biopsies and polypectomy Indications:: Patient is a 62-year-old male with a history of positive Cologuard. He underwent colonoscopy September 2021. He was found to have numerous large complex polyps including mass in the proximal transverse colon. Patient actually had some bleeding from sigmoid polypectomy requiring Hemoclip and admission overnight. He ultimately underwent segmental transverse colon resection on 11/02/2021 and pathology returned as large, 5 cm, tubulovillous adenoma with high-grade dysplasia without invasive component. Given the numerous complex large adenomatous polyps noted on the initial screening colonoscopy plan was made for early follow-up colonoscopy. Performing Provider:: Kimani Mckeon MD Referring Provider:: Rik Beach Sedation:: MAC sedation Procedure:: Patient history was obtained and appropriate physical examination was performed. Patient's medications and allergies were reviewed. Informed consent was obtained after explaining the benefits, alternatives, and risks of the procedure including, but not limited to, bleeding, perforation, missed lesions, and adverse reaction to anesthesia medications. Patient was transported to endoscopy procedure room. Patient was connected to monitoring devices. Patient identification and planned procedure were verified by the staff. Throughout the procedure the patient's blood pressure, pulse, and oxygen saturations were monitored continuously. Patient was positioned in lateral decubitus position. Digital anorectal exam was performed. Variable stiffness Olympus colonoscope was inserted and advanced under direct visualization to the cecum. Adequacy of the colonic preparation was noted. The colonoscope was advanced a short distance into the ileocecal valve. The colonoscope was then slowly withdrawn while carefully examining the color, texture, anatomy, and integrity of the mucosoa circumferentially. Within the rectum retroflexion was performed. Colonoscope was then withdrawn. Findings:: Good colonic preparation Normal-appearing ileocecal valve and cecum Prominent mucosa at anastomosis near the hepatic flexure, biopsied Transverse colon polyp removed with cold snare with residual polyp removed with biopsy Descending colon polyp removed with cold snare Previous polypectomy site with Hemoclip still present in the sigmoid colon. Some prominent surrounding mucosa, biopsied to evaluate for adenomatous change Sigmoid polyp removed with hot snare. Completion polypectomy revealed this to potentially be consistent with prolapse polyp with adjacent similar polyp which was biopsied. Recommendations:: Follow-up colonoscopy pending pathology. Given patient's history and findings likely within 1 year. Complications:: None immediately apparent Estimated blood obtained (mL): 2
[2022-05-25 13:50] VITALS: BP 127/78; PULSE 85; RESP 16; TEMP 36.2; O2SAT 91
[2022-05-25 14:00] VITALS: BP 137/80; PULSE 84; RESP 16; TEMP 36.2; O2SAT 94
[2022-05-25 14:10] VITALS: BP 135/73; PULSE 73; RESP 16; TEMP 36.2; O2SAT 95
[2022-05-25 14:20] VITALS: BP 144/78; PULSE 73; RESP 16; TEMP 36.2; O2SAT 96
== END 2022-05-25 14:20 | disposition home or self-care (01) ==
PROVIDERS: PCP Nurse Practitioner Family; Visit Provider Surgery
PROC: 0DJD8ZZ Inspection of Lower Intestinal Tract, Via Natural or Artificial Opening Endoscopic (ICD-10-PCS; CPT 45385; principal; 2022-05-25 12:30)
DX: Z12.11 Encounter for screening for malignant neoplasm of colon (principal); Z86.010 Personal history of colon polyps; K63.5 Polyp of colon; Z79.899 Other long term (current) drug therapy
CPT/HCPCS: 45385; 45380; J2704

== ENCOUNTER → 2022-05-28 08:48 | Outpatient (CLI) | payer OTHER, SELFPAY ==
[2022-05-28 17:39] LABS: Blood Urea Nitrogen 12 mg/dl (9-20); Estimated Glomerular Filt Rate 98 ml/min (>60); GFR (African American) 119 ML/MIN (>60)
== END ==
PROVIDERS: PCP Nurse Practitioner Family; Visit Provider Otolaryngology
DX: H90.6 Mixed conductive and sensorineural hearing loss, bilateral (principal)
CPT/HCPCS: 36415; 82565; 84520

== ENCOUNTER → 2022-05-31 07:23 | Outpatient (CLI) | payer OTHER, SELFPAY ==
--- NOTE | 2022-05-31 07:35 | MR_ITS ---
FINAL REPORT CLINICAL HISTORY: asymmetrical hearing loss left worse than right. TINNITUS IN LEFT EAR. 19ML PROHANCE GIVEN. FINDINGS: Multiplanar MR imaging of the brain was performed without and with contrast, with attention to the posterior fossa, cerebellopontine angles and internal auditory canals.There is mild age-appropriate atrophy. Scattered foci of increased T2 signal are seen in the cerebral white matter that have a nonspecific appearance but likely represent mild chronic ischemic/gliotic changes. There is no evidence of intracranial hemorrhage or mass. The ventricular size is within normal limits. There is no evidence of shift of the midline structures. No area of abnormal restricted diffusion is identified. Normal major vessel vascular flow voids are seen. No abnormal contrast enhancement is identified within the brain. There is mucosal thickening in several ethmoid air cells. No mass or abnormal contrast enhancement is seen within the cerebellopontine angles or internal auditory canals. No focal abnormality is identified of the temporal bones. IMPRESSION: No acute intracranial abnormality identified. No mass or abnormal contrast enhancement identified within the cerebellopontine angles or internal auditory canals. Reviewed, Interpreted and Dictated by Kimani Childers III, MD Transcribed by Enedelia Betancourt Authenticated and . [facility]
== END ==
PROVIDERS: PCP Nurse Practitioner Family; Visit Provider Otolaryngology
DX: H90.6 Mixed conductive and sensorineural hearing loss, bilateral (principal); H91.8X9 Other specified hearing loss, unspecified ear
CPT/HCPCS: 70553; A9576

== ENCOUNTER → 2022-07-05 13:36 | Outpatient (CLI) | payer OTHER, SELFPAY ==
[2022-07-05 18:56] LABS: Basophils # 0.1 K/mm3 (0-0.2); Basophils % 1.1 % (0.1-2.0); Eosinophils # 0.1 K/mm3 (0.0-0.4); Eosinophils % 2.1 % (0.1-12.0); Hematocrit 45.4 % (42.0-52.0); Hemoglobin 14.5 g/dL (14.1-18.0); Lymphocytes # 1.2 K/mm3 (0.7-4.5); Lymphocytes % 22.5 % (10-50); Mean Corpuscular Volume 96.8 fl (80-94); Mean Platelet Volume 8.8 fl (7.4-10.4); Monocytes # 0.5 K/mm3 (0.1-1.0); Monocytes % 8.1 % (1.7-9.3); Neutrophils # 3.6 K/mm3 (1.8-7.8); Neutrophils % 66.1 % (37.0-80.0); Platelet Count 175 K/mm3 (142-424); Red Blood Count 4.69 M/mm3 (4.60-6.20); Red Cell Distribution Width 14.3 % (11.5-17.5); White Blood Count 5.5 K/mm3 (4.8-10.8)
[2022-07-05 19:28] LABS: Alanine Aminotransferase 63 U/L (12-78); Albumin Level 4.9 g/dl (3.5-5.0); Albumin/Globulin Ratio 1.5 (1.1-1.8); Alkaline Phosphatase 76 U/L (38-126); Anion Gap 18.9 mEq/L (5-15); Aspartate Amino Transferase 106 U/L (17-59); Bilirubin,Total 0.7 mg/dl (0.2-1.3); Blood Urea Nitrogen 15 mg/dl (9-20); Carbon Dioxide 26 mmol/L (22.0-30.0); Chloride 99 mmol/L (98-107); Chol/HDL Ratio 2.6 (1-3.5); Cholesterol 206 mg/dl (140-200); Estimated Glomerular Filt Rate 86 ml/min (>60); GFR (African American) 103 ML/MIN (>60); Globulin 3.3 g/dL (1.3-3.2); Glucose 98 mg/dl (74-100); HDL Cholesterol 80 mg/dl (40-60); Potassium 3.9 mmoL/L (3.5-5.1); Sodium 140 mmol/L (136-145); Total Protein,Serum 8.2 g/dl (6.3-8.2); Triglycerides 155 mg/dl (30-150); VLDL Cholesterol 31 mg/dL (0-40)
[2022-07-05 19:46] LABS: Direct LDL Cholesterol 102.58 mg/dL (100-129)
[2022-07-05 19:50] LABS: Hemoglobin A1C 5.7 % (4.0-6.0)
[2022-07-05 19:58] LABS: Prostate Specific Ag Screen 1.2 ng/ml (0.0-4.0)
== END ==
PROVIDERS: PCP Student in an Organized Health Care Education/Training Program; Visit Provider Student in an Organized Health Care Education/Training Program
DX: I10 Essential (primary) hypertension (principal); E78.5 Hyperlipidemia, unspecified; Z12.5 Encounter for screening for malignant neoplasm of prostate
CPT/HCPCS: 80053; 80061; 83036; 85025; G0103

== ENCOUNTER → 2022-12-24 11:29 | Outpatient (CLI) | payer OTHER, SELFPAY ==
[2022-12-24 11:56] LABS: Basophils % 0.7 % (0.1-2.0); Eosinophils # 0.1 K/mm3 (0.0-0.4); Eosinophils % 1.4 % (0.1-12.0); Hematocrit 45.7 % (42.0-52.0); Hemoglobin 15.3 g/dL (14.1-18.0); Lymphocytes # 1.5 K/mm3 (0.7-4.5); Lymphocytes % 25.5 % (10-50); Mean Corpuscular HGB Conc 33.5 g/dL (31.8-35.4); Mean Corpuscular Hemoglobin 32.2 pg (27.0-31.2); Monocytes # 0.4 K/mm3 (0.1-1.0); Monocytes % 7.2 % (1.7-9.3); Neutrophils # 3.8 K/mm3 (1.8-7.8); Neutrophils % 65.2 % (37.0-80.0); Platelet Count 146 K/mm3 (142-424); Red Blood Count 4.76 M/mm3 (4.60-6.20); Red Cell Distribution Width 13.2 % (11.5-17.5); White Blood Count 5.7 K/mm3 (4.8-10.8)
[2022-12-24 12:19] LABS: Chloride 101 mmol/L (98-107); Potassium 3.9 mmoL/L (3.5-5.1); Sodium 140 mmol/L (136-145)
[2022-12-24 12:21] LABS: Bilirubin,Unconjugated 0.5 mg/dL (0.0-1.1); Blood Urea Nitrogen 11 mg/dl (9-20); Estimated Glomerular Filt Rate 98 ml/min (>60); GFR (African American) 119 ML/MIN (>60)
[2022-12-24 12:22] LABS: Alanine Aminotransferase 61 U/L (12-78); Albumin Level 4.7 g/dl (3.5-5.0); Alkaline Phosphatase 68 U/L (38-126); Anion Gap 13.9 mEq/L (5-15); Aspartate Amino Transferase 76 U/L (17-59); Bilirubin,Direct 0.2 mg/dl (0.0-0.4); Bilirubin,Indirect 0.5 mg/dL (0.0-0.9); Bilirubin,Total 0.7 mg/dl (0.2-1.3); Calcium 9.4 mg/dl (8.4-10.2); Carbon Dioxide 29 mmol/L (22.0-30.0); Chol/HDL Ratio 2.3 (1-3.5); Cholesterol 213 mg/dl (140-200); Glucose 106 mg/dl (74-100); HDL Cholesterol 92 mg/dl (40-60); Total Protein,Serum 8.5 g/dl (6.3-8.2); Triglycerides 81 mg/dl (30-150); VLDL Cholesterol 16 mg/dL (0-40)
[2022-12-24 12:33] LABS: Direct LDL Cholesterol 101.05 mg/dL (100-129)
[2022-12-24 12:53] LABS: Thyroid Stimulating Hormone 2.41 uIU/mL (0.465-4.68)
== END ==
PROVIDERS: PCP Nurse Practitioner Family; Visit Provider Physician Assistant
DX: R06.00 Dyspnea, unspecified (principal); I25.10 Atherosclerotic heart disease of native coronary artery without angina pectoris; E78.2 Mixed hyperlipidemia; I11.9 Hypertensive heart disease without heart failure; R94.31 Abnormal electrocardiogram [ECG] [EKG]; I63.9 Cerebral infarction, unspecified; Z95.5 Presence of coronary angioplasty implant and graft
CPT/HCPCS: 36415; 80048; 80061; 80076; 84439; 84443; 85025

== ENCOUNTER 2023-03-04 12:45 | Inpatient (IN) | payer OTHER, SELFPAY ==
[2023-03-04] VITALS (21 sets, daily range): BP systolic 126–192; BP diastolic 73–100; PULSE 18–100; RESP 18–21; TEMP 37–37.2; O2SAT 91–99; BMI 30.8
--- NOTE | 2023-03-04 12:45 | ECG_ITS ---
APPROVED REPORT Exam: Resting ECG HR:91 bpm ECG Measurements Heart Rate 91 AXES FL 208 P 74 QRSd 105 QRS 51 QT 351 T 61 QTc 399 Conclusion SINUS RHYTHM Left atrial abnormality Incomplete RBBB BORDERLINE ECG UNCONFIRMED REPORT Electronically signed by : Porter Dumont MD 03/05/2023 07:58:04
--- NOTE | 2023-03-04 12:47 | PC.NURSE ---
DR YOUNG AT BEDSIDE
--- NOTE | 2023-03-04 12:49 | XR_ITS ---
FINAL REPORT CLINICAL HISTORY: soa COMPARISON: None FINDINGS: A single portable view of the chest was obtained. The heart size and pulmonary vascularity are within normal limits. The mediastinum is within normal limits. No acute pulmonary abnormality is identified. The bony thorax is intact. IMPRESSION: No active cardiopulmonary disease. Reviewed, Interpreted and Dictated by Kimani Childers III, MD Transcribed by Bouchra Matt Authenticated and [facility]
--- NOTE | 2023-03-04 12:50 | HMH.EDGENADL ---
Discharge Plan Disposition Patient Disposition: Admitted Chief Complaint: Chest Pain Prescriptions Prescriptions: No Action cholecalciferol (vitamin D3) 25 mcg (1,000 unit) capsule 25 mcg PO DAILY milk thistle 175 mg tablet 350 mg PO DAILY Rx Instructions: give with meal/snack allopurinol 100 mg tablet See Rx Instructions .ROUTE .COMPLEX Qty: 90 3RF Dose Instruction: TAKE ONE TABLET BY MOUTH ONCE A DAY FOR GOUT Rx Instructions: TAKE ONE TABLET BY MOUTH ONCE A DAY FOR GOUT sildenafil 25 mg tablet 25 mg PO DAILY PRN (Reason: sexual activity) Qty: 30 0RF Rx Instructions: administer 30 minutes to 4 hours before activity aspirin 81 mg tablet,delayed release (DR/EC) See Rx Instructions .ROUTE .COMPLEX Qty: 30 2RF Dose Instruction: TAKE ONE TABLET BY MOUTH ONCE A DAY FOR HEART HEALTH Rx Instructions: TAKE ONE TABLET BY MOUTH ONCE A DAY FOR HEART HEALTH rosuvastatin 10 mg tablet See Rx Instructions .ROUTE .COMPLEX Qty: 30 0RF Dose Instruction: TAKE ONE TABLET BY MOUTH ONCE A DAY Rx Instructions: TAKE ONE TABLET BY MOUTH ONCE A DAY Clinical Impressions Clinical Impression: Acute non-ST elevation myocardial infarction (NSTEMI) Discharge ED Provider: Yeison Mills General Adult HPI General Chief complaint: Chest Pain Stated complaint: chest pain Time Seen by Provider: 03/04/23 12:45 History of Present Illness HPI narrative: 63-year-old male presents with history of hyperlipidemia hypertension coronary disease presents with chest pain after eating oats this morning. The pain occurred around 10 AM. He felt a sharp pain in the middle of his chest that did not radiate was not tearing or ripping felt like a pressure-like pain. It is resolving now. No nausea vomiting radiation of the pain. No diarrhea no coughing up blood no leg swelling no abdominal pain. Related Data Home Medications Medication Instructions Recorded Confirmed milk thistle 175 mg tablet 350 mg PO DAILY Supplement 10/05/20 12/27/22 cholecalciferol (vitamin D3) 25 25 mcg PO DAILY Supplement 10/25/20 12/27/22 mcg (1,000 unit) capsule Previous Rx's Medication Instructions Recorded allopurinol 100 mg tablet See Rx Instructions .Route 12/27/22 .COMPLEX #90 tabs aspirin 81 mg tablet,delayed See Rx Instructions .Route 12/27/22 release .COMPLEX #30 tabs sildenafil 25 mg tablet 25 mg PO DAILY PRN sexual activity 12/27/22 #30 tabs rosuvastatin 10 mg tablet See Rx Instructions .Route 03/01/23 .COMPLEX #30 tabs Allergies Allergy/AdvReac Type Severity Reaction Status Date / Time diphenhydramine Allergy Verified 12/27/22 16:13 [From Benadryl] hydrocodone Allergy Verified 12/27/22 16:13 nitroglycerin Allergy Verified 12/27/22 16:13 Penicillins Allergy Verified 12/27/22 16:13 atorvastatin [From Lipitor] AdvReac Severe Verified 12/27/22 16:13 [facility] Disclaimer: The information contained in this section may have been updated after the patient was seen, as this information can be updated by other users. Medical History Abnormal EKG Asymmetrical hearing loss CAD (coronary artery disease) Colonoscopy planned Hand pain, right History of chest pain History of COVID-19 History of gastroesophageal reflux (GERD) History of heart attack History of syncope HLD (hyperlipidemia) HTN (hypertension) Hyperlipidemia Hypertension Mixed conductive and sensorineural hearing loss of both ears Myocardial infarction Numbness of finger Urinary tract infection Surgical History History of ankle surgery History of bowel resection History of colonoscopy History of esophagogastroduodenoscopy (EGD) History of heart artery stent Family History Other Cancer Diabetes Heart attack Hyp
[2023-03-04 12:59] LABS: Basophils # 0.1 K/mm3 (0-0.2); Basophils % 0.9 % (0.1-2.0); Eosinophils # 0.2 K/mm3 (0.0-0.4); Hematocrit 47.7 % (42.0-52.0); Hemoglobin 15.1 g/dL (14.1-18.0); Lymphocytes # 1.3 K/mm3 (0.7-4.5); Lymphocytes % 23.8 % (10-50); Mean Corpuscular HGB Conc 31.7 g/dL (31.8-35.4); Mean Corpuscular Hemoglobin 31.2 pg (27.0-31.2); Mean Corpuscular Volume 98.5 fl (80-94); Mean Platelet Volume 8.4 fl (7.4-10.4); Monocytes # 0.4 K/mm3 (0.1-1.0); Monocytes % 7.9 % (1.7-9.3); Neutrophils # 3.5 K/mm3 (1.8-7.8); Neutrophils % 64.5 % (37.0-80.0); Platelet Count 148 K/mm3 (142-424); Red Blood Count 4.85 M/mm3 (4.60-6.20); Red Cell Distribution Width 13.3 % (11.5-17.5); White Blood Count 5.5 K/mm3 (4.8-10.8)
[2023-03-04 13:04] LABS: Alanine Aminotransferase 75 U/L (12-78); Albumin Level 4.9 g/dl (3.5-5.0); Albumin/Globulin Ratio 1.2 (1.1-1.8); Alkaline Phosphatase 62 U/L (38-126); Anion Gap 12.4 mEq/L (5-15); Aspartate Amino Transferase 96 U/L (17-59); Bilirubin,Total 0.7 mg/dl (0.2-1.3); Blood Urea Nitrogen 12 mg/dl (9-20); Calcium 9.7 mg/dl (8.4-10.2); Carbon Dioxide 32 mmol/L (22.0-30.0); Chloride 100 mmol/L (98-107); Creatinine Clearance Estimated 101 mL/min (50-200); Estimated Glomerular Filt Rate 85 ml/min (>60); GFR (African American) 103 ML/MIN (>60); Globulin 4.2 g/dL (1.3-3.2); Glucose 165 mg/dl (74-100); Potassium 3.4 mmoL/L (3.5-5.1); Sodium 141 mmol/L (136-145); Total Protein,Serum 9.1 g/dl (6.3-8.2)
--- NOTE | 2023-03-04 13:09 | PC.NURSE ---
XR AT BEDSIDE
--- NOTE | 2023-03-04 13:20 | PC.NURSE ---
aware of troponin of 0.20
--- NOTE | 2023-03-04 13:21 | PC.NURSE ---
CARDIOLOGY PAGED AT THIS TIME
--- NOTE | 2023-03-04 13:21 | PC.NURSE ---
DR YOUNG SPEAKING WITH DR PEACE
--- NOTE | 2023-03-04 13:22 | PC.NURSE ---
DR YOUNG UPDATING PT AND FAMILY AT THIS TIME
--- NOTE | 2023-03-04 13:24 | PC.NURSE ---
DR YOUNG SPEAKING WITH DR ARMENTA FOR ADMISSION
[2023-03-04 13:27] LABS: Coronavirus 19, PCR Not Detected (NotDetected); Influenza A, PCR Not Detected (NotDetected); Influenza B, PCR Not Detected (NotDetected)
--- NOTE | 2023-03-04 13:31 | PC.NURSE ---
notified care management of admission, spoke with enid
--- NOTE | 2023-03-04 13:34 | PC.NURSE ---
DR PEACE AT BEDSIDE
--- NOTE | 2023-03-04 13:50 | IR_ITS ---
APPROVED REPORT Patient Location: Emergent Cigarette Packer: SARAH Mitchell RT (R) PROCEDURES Selective coronary angiogram Drug-eluting stent deployment to the ostial proximal mid and distal chronically occluded dominant right coronary INDICATION Acute non-ST elevation myocardial infarction, Coronary artery disease Informed consent was obtained prior to the procedure. COMPLICATIONS None Estimated Blood Loss: Less than 10 mls TECHNIQUE One percent lidocaine used to anesthetize the right anterior aspect of the wrist. The right radial artery was accessed via the Seldinger technique. A 6 [place] sheath was placed in the right radial artery. 150 mg magnesium sulfate, 800 mcg of nitroglycerin, 1mg Lidocaine and 5000 U Heparin were given through the arterial sheath. The papa catheter was also used to perform selective coronary angiography. At the end the diagnostic angiogram therapeutic heparin is administered giving a therapeutic ACT and the guide catheter was placed in the right coronary followed by 2 Choice PT extra-support wires. 1 placed in the RV marginal and other 1 used to push through the chronic occlusion in the right coronary artery. A 2 mm compliant balloon was used to predilate the stenosis with the assistance of a guide liner. Eventually a 3.5 x 38 mm Tab frontier stent was placed in the ostial proximal midportion of the right coronary and deployed at 18 tessa. The guide catheter became dislodged therefore a ALVARADO guide catheter was placed back into the right coronary artery followed by Choice PT extra-support wire. Additional guide liner support and predilatation was made eventually an additional 3.5 x 26 mm Tab frontier stent was then placed distal to the for stent yet still overlapping it at 18 tessa. The balloon was brought back and meshed at 22 tessa and then placed in the ostial segment at 24 tessa. A 4 mm x 12 mm noncompliant balloon was then placed in the proximal portion deployed at 18 tessa brought back to the ostium and then deployed at 20 tessa to post dilate. OLAMIDE 0 flow was present at the beginning of the procedure with OLAMIDE-3 flow at the end of the procedure. At the end the procedure the apparatus was removed the sheath was removed and hemostasis was achieved using TR banding patient was transferred to the postop putting in stable condition ANGIOGRAPHIC RESULTS The left main artery Normal The left anterior descending artery Has proximal 10 to 20% stenoses followed by a diffuse 20 to 30% mid vessel stenoses The circumflex artery Is nondominant and has a proximal concentric 60% stenosis. The stent extends into a large first obtuse marginal artery which has proximal concentric 50% stenosis. The stent then bifurcates into the smaller second obtuse marginal artery supplying a small amount of myocardium. The stent is subtotally occluded with slow flow to the distal second obtuse marginal artery The right coronary artery Large and dominant with proximal ostial 10 to 20% stenoses in the vessel was then occluded after a large RV marginal branch. Following revascularization there is inline flow from the ostial proximal mid distal segment throughout the right coronary artery with inline distal flow The ALEGRIA ventriculogram reveals Not performed The left ventricular end-diastolic pressure 10 mmHg IMPRESSION Occluded mid dominant right coronary artery with successful percutaneous revascularization of the ostial proximal mid and distal segment reconstructing the artery and providing inline flow to a large distal vessel. 100% occlusion reduced to 0% with 2 contiguous drug-eluting stents Persistent moderate to severe stenosis in a moderate size nondominant circumflex artery Normal left ventricular end-diastolic pressure PLAN 1. Plavix 600 mg now followe
--- NOTE | 2023-03-04 13:54 | HMH.PHAINT1 ---
Pharmacy Intervention Comments: MEDICATION RECONCILIATION COMPLETED ON PATIENT USING EXTERNAL FILL HISTORY FROM PHARMACY AND LIST FROM PCP/CARDIOLOGY OFFICE. -RIO LYOND
--- NOTE | 2023-03-04 13:59 | PC.NURSE ---
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
--- NOTE | 2023-03-04 14:08 | EXP.CARD.CON ---
History of Present Illness History of Present Illness Consult date: 03/04/23 Requesting physician: Yeison Mills Consult reason: chest pain Chief complaint: chest pain History of present illness: 63-year-old white male with past medical history of daily alcohol use, coronary artery disease status post prior stenting presented to emergency department today with complaints of midsternal chest pain that started this morning around 10 AM after eating oats. Patient described pain as a non-radiating, pressure-like sensation. Initial EKG shows diffuse ST depression. Initial troponin 0.20. Other labs as follow: WBC 5.5, hemoglobin 18.1, sodium 141, potassium 3.4, creatinine 0.9, troponin 0.2. Chest x-ray negative for acute cardiopulmonary process. Patient was evaluated in ER per Dr. Smith with recommendations to proceed with left heart catheterization. Patient is agreeable. BP elevated. Reports drinks vodka nightly. [facility] Disclaimer: The information contained in this section may have been updated after the patient was seen, as this information can be updated by other users. Medical History Abnormal EKG Asymmetrical hearing loss CAD (coronary artery disease) Colonoscopy planned Hand pain, right History of chest pain History of COVID-19 History of gastroesophageal reflux (GERD) History of heart attack History of syncope HLD (hyperlipidemia) HTN (hypertension) Hyperlipidemia Hypertension Mixed conductive and sensorineural hearing loss of both ears Myocardial infarction Numbness of finger Urinary tract infection Surgical History History of ankle surgery History of bowel resection History of colonoscopy History of esophagogastroduodenoscopy (EGD) History of heart artery stent Family History Other Cancer Diabetes Heart attack Hyperlipidemia Hypertension Social History Smoking Status: Former smoker how long ago did patient quit smokin years ago alcohol intake: current substance use type: denies use current occupational status: employed Travel in the last 8 weeks: None household members: spouse housing: house 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 current occupational exposures/hazards: Yes caffeine: Yes Review of Systems Review of Systems Review of systems:: pertinent systems reviewed and negative unless documented below Constitutional Constitutional: Denies headache(s) ENT Ears, Nose, Mouth, and Throat: Denies dizziness and Denies headache(s) *Cardiovascular Cardiovascular: Reports system reviewed and no additional complaints, except as documented *Respiratory Respiratory: Reports system reviewed and no additional complaints, except as documented *Gastrointestinal Gastrointestinal: Reports system reviewed and no additional complaints, except as documented *Neurologic Neurologic: Denies confusion, Denies dizziness and Denies headache(s) Psychiatric Psychiatric: Reports system reviewed and no additional complaints, except as documented and Denies confusion Exam Data for Last 24 hours Vital signs and Labs for Last 24 Hours: Temp Pulse Resp BP Pulse Ox O2 Del Method 98.6 F 18 L 20 159/98 H 96 Room Air 03/04/23 12:44 03/04/23 13:00 03/04/23 12:44 03/04/23 13:00 03/04/23 13:00 03/04/23 12:44 Laboratory Results - last 24 hr 03/04/23 12:47: WBC 5.5, RBC 4.85, Hgb 15.1, Hct 47.7, MCV 98.5 H, MCH 31.2, MCHC 31.7 L, RDW 13.3, Plt Count 148, MPV 8.4, Neut % (Auto) 64.5, Lymph % (Auto) 23.8, [place]ess % (Auto) 7.9, Eos % (Auto) 3.0, Baso % (Auto) 0.9, Neut # (Auto) 3.5, Lymph # (Auto) 1.3, [place] # (Auto) 0.4, Eos # (Auto) 0.2, Baso # (Auto) 0.1, Sodium 141, Potassium 3.4 L, Chloride 100, Carbon Dioxide 32 H, Anion Gap 12.4, BUN 12, Creatinine 0.90, Estimated Creat Clear 1
[2023-03-04 14:41] LABS: Ethyl Alcohol < 10 mg/dl (0-10)
[2023-03-04 15:14] LABS: Direct LDL Cholesterol 82.77 mg/dL (100-129)
[2023-03-04 15:21] LABS: CATHL Activated Clotting Time 262 SEC (74-125)
--- NOTE | 2023-03-04 15:44 | PC.NURSE ---
arrived to floor from clinical laboratory service teacher
--- NOTE | 2023-03-04 16:28 | EXP.HP ---
History of Present Illness *Admission Date: 03/04/23 *Reason for visit:: chest pain *History of present illness: Mr. Michelle is a 63-year-old male with past medical history of alcohol dependence (Daily drinker), history of CAD, hyperlipidemia, who presented to the ER with complaint of chest pain that started this morning. States pain began about 10 AM after eating. He described the pain as nonradiating and pressure-like. Initial EKG with diffuse ST depressions in the ER. Initial troponin 0.2. Remainder of labs within normal limits except for hemoglobin elevated to 18. ER discussed case with Dr. Smith, patient taken to the [facility] from the ER. Upon arrival after PCI, patient feeling better. Has a slight tremor. Denies any nausea or vomiting. Chest pain improved. Stable on room air. at bedside. Patient reportedly drinks vodka starting 5 PM after he gets off work. Will go through 1/2 gallon in 2 to 3 days per . Has no intention of quitting. [facility] Disclaimer: The information contained in this section may have been updated after the patient was seen, as this information can be updated by other users. Medical History Abnormal EKG Alcohol abuse Alcohol abuse Alcohol abuse Asymmetrical hearing loss CAD (coronary artery disease) Colonoscopy planned Hand pain, right History of chest pain History of COVID-19 History of gastroesophageal reflux (GERD) History of heart attack History of syncope HLD (hyperlipidemia) HTN (hypertension) Hyperlipidemia Hypertension Mixed conductive and sensorineural hearing loss of both ears Myocardial infarction Numbness of finger Urinary tract infection Surgical History History of ankle surgery History of bowel resection History of colonoscopy History of esophagogastroduodenoscopy (EGD) History of heart artery stent Family History Diabetes Hyperlipidemia Heart attack Cancer Hypertension Social History Smoking Status: Former smoker how long ago did patient quit smokin years ago alcohol intake: current substance use type: denies use current occupational status: employed Travel in the last 8 weeks: None household members: spouse housing: house 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 current occupational exposures/hazards: Yes caffeine: Yes Review of Systems Constitutional Constitutional: Denies headache(s) ENT Ears, Nose, Mouth, and Throat: Denies dizziness and Denies headache(s) *Neurologic Neurologic: Denies confusion, Denies dizziness and Denies headache(s) Psychiatric Psychiatric: Denies confusion Meds Home Medications and Allergies Home Medications Medication Instructions Recorded Confirmed Type milk thistle 175 mg tablet 350 mg PO DAILY Supplement 10/05/20 03/04/23 History cholecalciferol (vitamin D3) 25 25 mcg PO DAILY Supplement 10/25/20 03/04/23 History mcg (1,000 unit) capsule sildenafil 25 mg tablet 25 mg PO DAILY PRN sexual activity 12/27/22 03/04/23 Rx #30 tabs allopurinol 100 mg tablet 100 mg PO DAILY GOUT 03/04/23 03/04/23 History aspirin 81 mg tablet,delayed 81 mg PO DAILY HEART HEALTH 03/04/23 03/04/23 History release rosuvastatin 20 mg tablet 20 mg PO DAILY Cholesterol 03/04/23 03/04/23 History New Prescriptions to Start Prescriptions: Allergies Allergy/AdvReac Type Severity Reaction Status Date / Time diphenhydramine Allergy Verified 12/27/22 16:13 [From Benadryl] hydrocodone Allergy Verified 12/27/22 16:13 nitroglycerin Allergy Verified 12/27/22 16:13 Penicillins Allergy Verified 12/27/22 16:13 atorvastatin [From Lipitor] AdvReac Severe Verified 12/27/22 16:13 Exam Data for Last 24 hours Vital signs and Labs for Last 24 Hours: Temp Pulse Resp BP Pulse Ox O2 Del Method 98.8
--- NOTE | 2023-03-04 16:30 | PC.NURSE ---
Patient's supplied 200 ml Mehta premium vodka bottle. Verified with Dr. Ga. Placed bottle in omni cell in patient's bin.
--- NOTE | 2023-03-04 16:51 | PC.NURSE ---
1.25 ounce Mehta premium vodka mixed with 16.9 fl ounce water. administered to patient. Verified with Dr. Ga at bedside.
[2023-03-04 17:13] LABS: Troponin I 1.45 ng/ml (0.00-0.034)
--- NOTE | 2023-03-04 19:11 | PC.NURSE ---
1.25 ounce of rivera premium vodka mixed into 16.9 fl oz water bottle. Verified with JOHN Wolfe. Administered to patient
[2023-03-05] VITALS: BP 133/77; PULSE 79; PULSE 80; RESP 16; TEMP 37.2; O2SAT 93
--- NOTE | 2023-03-05 00:51 | PC.NURSE ---
03/04/2023: @ 2100 PT WAS GIVEN 1.25 OZ OF PROVIDED VODKA MIXED INTO A GATORADE BOTTLE. VERIFIED WITH SANDRA VEGA RN @ 7613 PT WAS GIVEN 1.25 OZ OF PROVIDED VODKA MIXED INTO A GATORADE BOTTLE. VERIFIED WITH KELY HOFFMANN RN
[2023-03-05 04:00] VITALS: BP 165/72; PULSE 62; RESP 18; TEMP 36.6; O2SAT 95; BMI 30.5
[2023-03-05 06:00] VITALS: PULSE 70
[2023-03-05 06:33] LABS: Basophils % 0.1 % (0.1-2.0); Eosinophils % 0.2 % (0.1-12.0); Hematocrit 47.2 % (42.0-52.0); Hemoglobin 15.4 g/dL (14.1-18.0); Lymphocytes # 0.6 K/mm3 (0.7-4.5); Lymphocytes % 6.3 % (10-50); Mean Corpuscular HGB Conc 32.5 g/dL (31.8-35.4); Mean Corpuscular Hemoglobin 31.7 pg (27.0-31.2); Mean Corpuscular Volume 97.4 fl (80-94); Mean Platelet Volume 8.2 fl (7.4-10.4); Monocytes # 0.4 K/mm3 (0.1-1.0); Monocytes % 3.9 % (1.7-9.3); Neutrophils # 7.9 K/mm3 (1.8-7.8); Neutrophils % 89.4 % (37.0-80.0); Platelet Count 156 K/mm3 (142-424); Red Blood Count 4.85 M/mm3 (4.60-6.20); Red Cell Distribution Width 13.1 % (11.5-17.5); White Blood Count 8.8 K/mm3 (4.8-10.8)
[2023-03-05 06:35] LABS: MANUAL DIFFERENTIAL MANUAL DIFFERENTIAL (MANUAL DIFF)
[2023-03-05 07:21] VITALS: BP 148/93; PULSE 82; RESP 19; TEMP 36.7; O2SAT 95
[2023-03-05 07:50] LABS: Alanine Aminotransferase 63 U/L (12-78); Albumin Level 4.8 g/dl (3.5-5.0); Albumin/Globulin Ratio 1.2 (1.1-1.8); Alkaline Phosphatase 55 U/L (38-126); Aspartate Amino Transferase 68 U/L (17-59); Blood Urea Nitrogen 10 mg/dl (9-20); Carbon Dioxide 23 mmol/L (22.0-30.0); Chloride 104 mmol/L (98-107); Creatinine Clearance Estimated 100 mL/min (50-200); Estimated Glomerular Filt Rate 98 ml/min (>60); GFR (African American) 118 ML/MIN (>60); Globulin 3.9 g/dL (1.3-3.2); Glucose 153 mg/dl (74-100); Magnesium 2.5 mg/dl (1.6-2.3); Sodium 139 mmol/L (136-145); Total Protein,Serum 8.7 g/dl (6.3-8.2)
[2023-03-05 07:59] LABS: Phosphorous 1.8 mg/dl (2.5-4.5)
[2023-03-05 08:00] VITALS: PULSE 100
--- NOTE | 2023-03-05 08:04 | PC.NURSE ---
Notified Dr. Allen that patient's phosphous is 1.8
[2023-03-05 08:12] LABS: Lymphocytes % 9 % (10-50); Monocytes % 5 % (2-9); Neutrophils % 86 % (42-76); RBC Morphology Normal; Total Cells Counted 100
[2023-03-05 08:13] LABS: Platelet Estimate Normal
--- NOTE | 2023-03-05 09:16 | EXP.CARD.PN ---
Subjective Subjective Date: 03/05/23 Time: 08:30 Principal diagnosis: NSTEMI Interval history: Status post left heart cath yesterday, patient received DELFINA to RCA. Reports feeling better denies chest pain or shortness of breath. Morning labs reviewed. Preliminary echo shows a normal EF official report pending Exam Data for Last 24 hours Vital signs and Labs for Last 24 Hours: Temp Pulse Resp BP Pulse Ox O2 Del Method 98.1 F 100 H 19 148/93 H 95 Room Air 03/05/23 07:21 03/05/23 08:00 03/05/23 07:21 03/05/23 07:21 03/05/23 07:21 03/05/23 07:21 Laboratory Results - last 24 hr 03/04/23 12:47: WBC 5.5, RBC 4.85, Hgb 15.1, Hct 47.7, MCV 98.5 H, MCH 31.2, MCHC 31.7 L, RDW 13.3, Plt Count 148, MPV 8.4, Neut % (Auto) 64.5, Lymph % (Auto) 23.8, [place] % (Auto) 7.9, Eos % (Auto) 3.0, Baso % (Auto) 0.9, Neut # (Auto) 3.5, Lymph # (Auto) 1.3, [place] # (Auto) 0.4, Eos # (Auto) 0.2, Baso # (Auto) 0.1, Sodium 141, Potassium 3.4 L, Chloride 100, Carbon Dioxide 32 H, Anion Gap 12.4, BUN 12, Creatinine 0.90, Estimated Creat Clear 101, Estimated GFR 85, Est GFR ( Amer) 103, Glucose 165 H, Calcium 9.7, Total Bilirubin 0.7, AST 96 H, ALT 75, Alkaline Phosphatase 62, Troponin I 0.20 H, Total Protein 9.1 H, Albumin 4.9, Globulin 4.2 H, Albumin/Globulin Ratio 1.2, LDL Cholesterol Direct 82.77 L, Plasma/Serum Alcohol < 10 03/04/23 13:20: SARS-CoV-2 (PCR) Not detected, Influenza A Untype (PCR) Not detected, Influenza Type B (PCR) Not detected 03/04/23 14:52: Activated Clotting Time 262 H* 03/04/23 16:13: Troponin I 1.45 H 03/05/23 06:02: WBC 8.8 D, RBC 4.85, Hgb 15.4, Hct 47.2, MCV 97.4 H, MCH 31.7 H, MCHC 32.5, RDW 13.1, Plt Count 156, MPV 8.2, Neut % (Auto) 89.4 H, Lymph % (Auto) 6.3 L, [place] % (Auto) 3.9, Eos % (Auto) 0.2, Baso % (Auto) 0.1, Neut # (Auto) 7.9 H, Lymph # (Auto) 0.6 L, [place] # (Auto) 0.4, Eos # (Auto) 0.0, Baso # (Auto) 0.0, Total Counted 100, Neutrophils % (Manual) 86 H, Lymphocytes % (Manual) 9 L, Monocytes % (Manual) 5, Platelet Estimate Normal, RBC Morphology Normal, Sodium 139, Potassium 4.0, Chloride 104, Carbon Dioxide 23, Anion Gap 16.0 H, BUN 10, Creatinine 0.80, Estimated Creat Clear 100, Estimated GFR 98, Est GFR ( Amer) 118, Glucose 153 H, Calcium 10.0, Phosphorus 1.8 L, Magnesium 2.5 H, Total Bilirubin 1.0, AST 68 H D, ALT 63, Alkaline Phosphatase 55, Total Protein 8.7 H, Albumin 4.8, Globulin 3.9 H, Albumin/Globulin Ratio 1.2 I & O for Last 24 hours: Intake & Output 03/02/23 03/03/23 03/04/23 03/05/23 23:59 23:59 23:59 23:59 Intake Total 360 / 1960 1960 / 1959 Output Total 2600 / 3000 1100 / 1100 Balance -2240 / -1040 860 / 860 Weight 209 lb 206 lb 6 oz Constitutional Constitutional: no acute distress *Routine Respiratory Exam Respiratory: Present CTA bilaterally and symmetric chest movement *Routine Cardiovascular Exam Cardiovascular: Present RRR, Normal S1 and Normal S2 *Routine Abdominal Exam Abdominal: Present soft and normoactive bowel sounds; Absent tenderness *Routine Extremities Exam Extremities: Present full ROM and normal capillary refill; Absent edema Comments: Right radial access-no bruising/swelling/bleeding noted *Routine Skin Exam Skin: Present intact, dry and warm Detailed Neck Exam: Thyroids Thyroid: Absent bruit Progress Note: A&P Assessment and plan (1) Acute non-ST elevation myocardial infarction (NSTEMI): Status: Acute (2) Unstable angina: Status: Acute (3) HLD (hyperlipidemia): Status: Acute (4) HTN (hypertension): Status: Acute (5) CAD (coronary artery disease): Status: Chronic (6) Alcohol use disorder: Status: Acute Assessment and Plan Assessment and Plan for All Diagnoses:: NSTEMI CAD Abnormal EKG -Trop 0.20 -Diffuse st depression noted -Plan to proceed with [facility] today, discussed risks vs. benefits, he is agreeable. 03/05/2023-[facility] yesterday with DELFINA to rca. Continue DAPT therapy with aspirin and Plavix, bisoprolol 10 m
--- NOTE | 2023-03-05 10:06 | EXP.DC.SUM ---
General Admission date:: 03/04/23 Discharge date: 03/05/23 HPI HPI HPI: Mr. Michelle is a 63-year-old male with past medical history of alcohol dependence (Daily drinker), history of CAD, hyperlipidemia, who presented to the ER with complaint of chest pain that started this morning. States pain began about 10 AM after eating. He described the pain as nonradiating and pressure-like. Initial EKG with diffuse ST depressions in the ER. Initial troponin 0.2. Remainder of labs within normal limits except for hemoglobin elevated to 18. ER discussed case with Dr. Smith, patient taken to the [facility] from the ER. Upon arrival after PCI, patient feeling better. Has a slight tremor. Denies any nausea or vomiting. Chest pain improved. Stable on room air. at bedside. Patient reportedly drinks vodka starting 5 PM after he gets off work. Will go through 1/2 gallon in 2 to 3 days per . Has no intention of quitting. Hospital Course Hospital Course Hospital Course: Left heart catheterization revealed an occluded mid dominant right coronary artery. Two contiguous drug eluting stents were placed. The patient's chest pain had resolved on the day of discharge. He was started on plavix and is to continue his aspirin. His dose of Crestor was increased and he was started on irbesartan and bisprolol. He will need to follow up with Cardiology and his PCP in 1 week. With regard to the patient's alcohol dependence he was provided counseling. He does not have any desire to quit drinking at this time and was advised to seek assistance if he ever decides to quit. Exam Data for Last 24 hours Vital signs and Labs for Last 24 Hours: Temp Pulse Resp BP Pulse Ox O2 Del Method 98.1 F 100 H 19 148/93 H 95 Room Air 03/05/23 07:21 03/05/23 08:00 03/05/23 07:21 03/05/23 07:21 03/05/23 07:21 03/05/23 07:21 Laboratory Results - last 24 hr 03/04/23 12:47: WBC 5.5, RBC 4.85, Hgb 15.1, Hct 47.7, MCV 98.5 H, MCH 31.2, MCHC 31.7 L, RDW 13.3, Plt Count 148, MPV 8.4, Neut % (Auto) 64.5, Lymph % (Auto) 23.8, [place] % (Auto) 7.9, Eos % (Auto) 3.0, Baso % (Auto) 0.9, Neut # (Auto) 3.5, Lymph # (Auto) 1.3, [place] # (Auto) 0.4, Eos # (Auto) 0.2, Baso # (Auto) 0.1, Sodium 141, Potassium 3.4 L, Chloride 100, Carbon Dioxide 32 H, Anion Gap 12.4, BUN 12, Creatinine 0.90, Estimated Creat Clear 101, Estimated GFR 85, Est GFR ( Amer) 103, Glucose 165 H, Calcium 9.7, Total Bilirubin 0.7, AST 96 H, ALT 75, Alkaline Phosphatase 62, Troponin I 0.20 H, Total Protein 9.1 H, Albumin 4.9, Globulin 4.2 H, Albumin/Globulin Ratio 1.2, LDL Cholesterol Direct 82.77 L, Plasma/Serum Alcohol < 10 03/04/23 13:20: SARS-CoV-2 (PCR) Not detected, Influenza A Untype (PCR) Not detected, Influenza Type B (PCR) Not detected 03/04/23 14:52: Activated Clotting Time 262 H* 03/04/23 16:13: Troponin I 1.45 H 03/05/23 06:02: WBC 8.8 D, RBC 4.85, Hgb 15.4, Hct 47.2, MCV 97.4 H, MCH 31.7 H, MCHC 32.5, RDW 13.1, Plt Count 156, MPV 8.2, Neut % (Auto) 89.4 H, Lymph % (Auto) 6.3 L, [place] % (Auto) 3.9, Eos % (Auto) 0.2, Baso % (Auto) 0.1, Neut # (Auto) 7.9 H, Lymph # (Auto) 0.6 L, [place] # (Auto) 0.4, Eos # (Auto) 0.0, Baso # (Auto) 0.0, Total Counted 100, Neutrophils % (Manual) 86 H, Lymphocytes % (Manual) 9 L, Monocytes % (Manual) 5, Platelet Estimate Normal, RBC Morphology Normal, Sodium 139, Potassium 4.0, Chloride 104, Carbon Dioxide 23, Anion Gap 16.0 H, BUN 10, Creatinine 0.80, Estimated Creat Clear 100, Estimated GFR 98, Est GFR ( Amer) 118, Glucose 153 H, Calcium 10.0, Phosphorus 1.8 L, Magnesium 2.5 H, Total Bilirubin 1.0, AST 68 H D, ALT 63, Alkaline Phosphatase 55, Total Protein 8.7 H, Albumin 4.8, Globulin 3.9 H, Albumin/Globulin Ratio 1.2 I & O for Last 24 hours: Intake & Output 03/02/23 03/03/23 03/04/23 03/05/23 23:59 23:59 23:59 23:59 Intake Total 360 / 1960 1959 / 1959 Output Total 2600 / 3000 1100 / 1100 Balance -2240 / -1040 860 / 860 Weight 94.801 kg 93.61 kg
--- NOTE | 2023-03-05 10:34 | HMH.PHAINT1 ---
Pharmacy Intervention Comments: Discharge medications reviewed with patient and patient's . - Bisoprolol fumerate 10mg (told to watch for fatigue and dizziness) - Clopidogrel (told to watch for excess bleeding and bruising, especially being on antiplatelet therapy) - Irbesartan 75mg (told to watch for dizziness and fatigue) - Rosuvastatin 40mg (increased dose from 20mg to 40mg, told to watch for muscle pain) Patient asked to take all meds he is currently on at night, before bed. I counseled patient that he can take them all HS but if he awakes in morning feeling more fatigued and sluggish than usual to start taking the bisoprolol and/or irbesartan in the morning instead of at night. - Layton Dubose, PharmD student
--- NOTE | 2023-03-06 11:13 | CARE MANAGER ---
Called and spoke with patient regarding recent discharge. He stated that he is doing well, he was able to start new medications prescribed at discharge, and was aware of scheduled f/u appt. He had no questions or concerns at time of call.
== END 2023-03-05 11:25 | disposition home or self-care (01) | DRG 247 ==
LOC: ER 13:26 → 2ND 13:45
PROVIDERS: Internal Medicine; Nurse Practitioner; Admitting Provider Internal Medicine Adolescent Medicine; Emergency Provider Emergency Medicine; Visit Provider Internal Medicine Adolescent Medicine
PROC: 027035Z Dilation of Coronary Artery, One Artery with Two Drug-eluting Intraluminal Devices, Percutaneous Approach (ICD-10-PCS; principal; 2023-03-04 14:00)
DX: I21.4 Non-ST elevation (NSTEMI) myocardial infarction (principal); I10 Essential (primary) hypertension; E78.5 Hyperlipidemia, unspecified; K21.9 Gastro-esophageal reflux disease without esophagitis; I25.2 Old myocardial infarction; Z95.5 Presence of coronary angioplasty implant and graft; Z85.9 Personal history of malignant neoplasm, unspecified; I25.82 Chronic total occlusion of coronary artery; F10.20 Alcohol dependence, uncomplicated; I25.110 Atherosclerotic heart disease of native coronary artery with unstable angina pectoris
CPT/HCPCS: 36415; 71045; 80053; 83722; 83735; 84100; 84484; 85007; 85025; 85347; 87636; 92941; 93005; 93306; 93454; 99152; 99153; 99285; C1725; C1769; C1876; C9606; J1644; Q9967

== ENCOUNTER → 2023-06-11 09:15 | Outpatient (CLI) | payer OTHER, SELFPAY ==
[2023-06-11 10:06] LABS: Basophils % 0.5 % (0.1-2.0); Eosinophils # 0.2 K/mm3 (0.0-0.4); Eosinophils % 4.2 % (0.1-12.0); Hemoglobin 10.9 g/dL (14.1-18.0); Lymphocytes # 1.1 K/mm3 (0.7-4.5); Lymphocytes % 26.7 % (10-50); Mean Corpuscular HGB Conc 34.2 g/dL (31.8-35.4); Mean Corpuscular Hemoglobin 34.3 pg (27.0-31.2); Mean Corpuscular Volume 100.3 fl (80-94); Mean Platelet Volume 7.5 fl (7.4-10.4); Monocytes # 0.4 K/mm3 (0.1-1.0); Monocytes % 9.2 % (1.7-9.3); Neutrophils # 2.5 K/mm3 (1.8-7.8); Neutrophils % 59.4 % (37.0-80.0); Platelet Count 116 K/mm3 (142-424); Red Blood Count 3.19 M/mm3 (4.60-6.20); Red Cell Distribution Width 13.7 % (11.5-17.5); White Blood Count 4.2 K/mm3 (4.8-10.8)
[2023-06-11 10:27] LABS: Hemoglobin A1C 5.3 % (4.0-6.0)
[2023-06-11 10:42] LABS: Chloride 108 mmol/L (98-107); Potassium 3.7 mmoL/L (3.5-5.1); Sodium 143 mmol/L (136-145)
[2023-06-11 10:44] LABS: Alanine Aminotransferase 43 U/L (12-78); Albumin Level 4.2 g/dl (3.5-5.0); Alkaline Phosphatase 56 U/L (38-126); Anion Gap 13.7 mEq/L (5-15); Aspartate Amino Transferase 67 U/L (17-59); Bilirubin,Direct 0.5 mg/dl (0.0-0.4); Bilirubin,Indirect 0.4 mg/dL (0.0-0.9); Bilirubin,Total 0.9 mg/dl (0.2-1.3); Bilirubin,Unconjugated 0.4 mg/dL (0.0-1.1); Blood Urea Nitrogen 19 mg/dl (9-20); Carbon Dioxide 25 mmol/L (22.0-30.0); Cholesterol 173 mg/dl (140-200); Estimated Glomerular Filt Rate 41 ml/min (>60); GFR (African American) 50 ML/MIN (>60); Total Protein,Serum 7.4 g/dl (6.3-8.2); Triglycerides 110 mg/dl (30-150); VLDL Cholesterol 22 mg/dL (0-40)
[2023-06-11 10:45] LABS: Calcium 9.3 mg/dl (8.4-10.2); Glucose 87 mg/dl (74-100); Magnesium 1.2 mg/dl (1.6-2.3)
[2023-06-11 10:56] LABS: Direct LDL Cholesterol 40.43 mg/dL (100-129)
[2023-06-11 10:58] LABS: Chol/HDL Ratio 1.5 (1-3.5); HDL Cholesterol 115 mg/dl (40-60)
[2023-06-11 11:04] LABS: Free T4 (Free Thyroxine) 0.91 ng/dl (0.78-2.19)
[2023-06-11 11:15] LABS: Thyroid Stimulating Hormone 3.08 uIU/mL (0.465-4.68)
== END ==
PROVIDERS: PCP Nurse Practitioner Family; Visit Provider Physician Assistant
DX: E78.5 Hyperlipidemia, unspecified (principal); I10 Essential (primary) hypertension; I25.10 Atherosclerotic heart disease of native coronary artery without angina pectoris; Z95.5 Presence of coronary angioplasty implant and graft; Z87.891 Personal history of nicotine dependence
CPT/HCPCS: 36415; 80048; 80061; 80076; 83036; 83735; 84439; 84443; 85025

== ENCOUNTER → 2023-06-27 07:04 | Outpatient (CLI) | payer OTHER, SELFPAY ==
[2023-06-27 07:29] LABS: Basophils % 0.6 % (0.1-2.0); Eosinophils # 0.2 K/mm3 (0.0-0.4); Eosinophils % 4.9 % (0.1-12.0); Hematocrit 34.2 % (42.0-52.0); Hemoglobin 11.6 g/dL (14.1-18.0); Lymphocytes # 1.2 K/mm3 (0.7-4.5); Lymphocytes % 31.7 % (10-50); Mean Corpuscular Hemoglobin 35.2 pg (27.0-31.2); Mean Corpuscular Volume 103.7 fl (80-94); Mean Platelet Volume 9.4 fl (7.4-10.4); Monocytes # 0.3 K/mm3 (0.1-1.0); Monocytes % 8.6 % (1.7-9.3); Neutrophils % 54.2 % (37.0-80.0); Platelet Count 138 K/mm3 (142-424); Red Cell Distribution Width 14.1 % (11.5-17.5); White Blood Count 3.7 K/mm3 (4.8-10.8)
[2023-06-27 08:24] LABS: Anion Gap 16.8 mEq/L (5-15); Blood Urea Nitrogen 19 mg/dl (9-20); Calcium 10.6 mg/dl (8.4-10.2); Carbon Dioxide 28 mmol/L (22.0-30.0); Chloride 101 mmol/L (98-107); Estimated Glomerular Filt Rate 68 ml/min (>60); GFR (African American) 82 ML/MIN (>60); Glucose 101 mg/dl (74-100); Potassium 3.8 mmoL/L (3.5-5.1); Sodium 142 mmol/L (136-145)
== END ==
PROVIDERS: PCP Nurse Practitioner Family; Visit Provider Physician Assistant
DX: I25.10 Atherosclerotic heart disease of native coronary artery without angina pectoris (principal); I10 Essential (primary) hypertension; I21.4 Non-ST elevation (NSTEMI) myocardial infarction
CPT/HCPCS: 36415; 80048; 85025

== ENCOUNTER 2024-02-24 15:27 | Outpatient (CLI) | payer OTHER, SELFPAY ==
[2024-02-24 16:25] LABS: Basophils # 0.1 K/mm3 (0-0.2); Eosinophils # 0.2 K/mm3 (0.0-0.4); Eosinophils % 3.3 % (0.1-12.0); Hematocrit 33.4 % (42.0-52.0); Hemoglobin 11.3 g/dL (14.1-18.0); Lymphocytes % 16.7 % (10-50); Mean Corpuscular HGB Conc 33.7 g/dL (31.8-35.4); Mean Corpuscular Hemoglobin 34.3 pg (27.0-31.2); Mean Corpuscular Volume 101.7 fl (80-94); Mean Platelet Volume 8.1 fl (7.4-10.4); Monocytes # 0.6 K/mm3 (0.1-1.0); Monocytes % 9.8 % (1.7-9.3); Neutrophils # 4.1 K/mm3 (1.8-7.8); Neutrophils % 69.2 % (37.0-80.0); Platelet Count 166 K/mm3 (142-424); Red Blood Count 3.29 M/mm3 (4.60-6.20)
[2024-02-24 17:17] LABS: Alanine Aminotransferase 55 U/L (12-78); Albumin Level 4.6 g/dl (3.5-5.0); Alkaline Phosphatase 68 U/L (38-126); Anion Gap 17.4 mEq/L (5-15); Aspartate Amino Transferase 74 U/L (17-59); Bilirubin,Direct 0.2 mg/dl (0.0-0.4); Bilirubin,Indirect 0.7 mg/dL (0.0-0.9); Bilirubin,Total 0.9 mg/dl (0.2-1.3); Bilirubin,Unconjugated 0.7 mg/dL (0.0-1.1); Blood Urea Nitrogen 18 mg/dl (9-20); Calcium 9.9 mg/dl (8.4-10.2); Carbon Dioxide 24 mmol/L (22.0-30.0); Chloride 102 mmol/L (98-107); Chol/HDL Ratio 1.5 (1-3.5); Cholesterol 151 mg/dl (140-200); Estimated Glomerular Filt Rate 30 ml/min (>60); GFR (African American) 37 ML/MIN (>60); Glucose 105 mg/dl (74-100); HDL Cholesterol 100 mg/dl (40-60); Magnesium 1.5 mg/dl (1.6-2.3); Potassium 3.4 mmoL/L (3.5-5.1); Sodium 140 mmol/L (136-145); Total Protein,Serum 8.3 g/dl (6.3-8.2); Triglycerides 67 mg/dl (30-150); VLDL Cholesterol 13 mg/dL (0-40)
[2024-02-24 17:30] LABS: Free T4 (Free Thyroxine) 0.95 ng/dl (0.78-2.19)
[2024-02-24 17:49] LABS: Direct LDL Cholesterol < 30.00 mg/dL (100-129)
[2024-02-24 17:50] LABS: Thyroid Stimulating Hormone 2.14 uIU/mL (0.465-4.68)
== END 2024-02-24 23:59 | disposition home or self-care (01) ==
LOC: LAB 15:30
PROVIDERS: PCP Nurse Practitioner Family; Visit Provider Physician Assistant
DX: R00.0 Tachycardia, unspecified (principal); E78.2 Mixed hyperlipidemia; I10 Essential (primary) hypertension
CPT/HCPCS: 36415; 80048; 80061; 80076; 83735; 84439; 84443; 85025

== ENCOUNTER 2024-03-13 09:12 | Outpatient (CLI) | payer OTHER, SELFPAY ==
--- NOTE | 2024-03-13 09:13 | CT_ITS ---
FINAL REPORT TECHNIQUE: Axial imaging of the abdomen was obtained without contrast. This study was performed with techniques to keep radiation doses as low as reasonably achievable (ALARA). Individualized dose reduction techniques using automated exposure control or adjustment of mA and/or kV according to the patient's size were employed. CLINICAL HISTORY: wt loss COMPARISON: 10/20/2021 FINDINGS: The distal half of the esophagus is thickened and could represent esophagitis. However, neoplasm not entirely excluded. Lung bases are clear. The liver is fatty infiltrated. No focal liver lesion is identified. Gallbladder is present. Spleen, adrenal glands and pancreas are without acute abnormality. GI tract is incompletely imaged. No acute abnormality is seen of the included portions. The appendix is normal. There is diverticulosis without evidence of diverticulitis. There are small retroperitoneal lymph nodes which are unchanged. There is no ascites. Osseous structures are unremarkable. IMPRESSION: Distal esophageal wall thickening, findings could represent esophagitis or less likely, neoplasm. Consider endoscopy for further evaluation. Fatty infiltration of the liver. Stable small retroperitoneal lymph nodes. Reviewed, Interpreted and Dictated by Araseli Pratt MD Transcribed by Shavonne Carrion Authenticated and [facility]
== END 2024-03-13 23:59 | disposition home or self-care (01) ==
LOC: RAD 09:13
PROVIDERS: PCP Physician Assistant; Visit Provider Physician Assistant
DX: K76.0 Fatty (change of) liver, not elsewhere classified (principal); R63.4 Abnormal weight loss; R63.0 Anorexia; Z68.29 Body mass index [BMI] 29.0-29.9, adult
CPT/HCPCS: 74150

== ENCOUNTER 2024-05-21 08:18 | Day surgery (SDC) | payer OTHER, SELFPAY ==
[2024-05-19 10:45] VITALS: BMI 28.6
[2024-05-21] MEDS: LACTATED RINGERS 1000ML 1,000 ML 25 ML IV (08:35)
[2024-05-21 08:39] VITALS: BP 144/82; PULSE 70; RESP 18; TEMP 36.1; O2SAT 97
--- NOTE | 2024-05-21 08:54 | P.PNANES_ITS ---
[facility] Disclaimer: The information contained in this section may have been updated after the patient was seen, as this information can be updated by other users. Medical History Dehydration Pancytopenia Alcohol abuse Alcohol abuse Alcohol abuse Colonoscopy planned Urinary tract infection History of COVID-19 History of syncope History of gastroesophageal reflux (GERD) History of heart attack History of chest pain Hyperlipidemia Hypertension Asymmetrical hearing loss Mixed conductive and sensorineural hearing loss of both ears Myocardial infarction HLD (hyperlipidemia) HTN (hypertension) Abnormal EKG Numbness of finger Hand pain, right CAD (coronary artery disease) Surgical History History of colonoscopy History of esophagogastroduodenoscopy (EGD) History of bowel resection History of ankle surgery History of heart artery stent Family History Other Cancer Diabetes Heart attack Hyperlipidemia Hypertension Social History Smoking Status: Former smoker how long ago did patient quit smokin years ago alcohol intake: current alcohol intake frequency: 3 or more drinks per day substance use type: denies use current occupational status: employed Travel in the last 8 weeks: None household members: spouse housing: house 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 current occupational exposures/hazards: Yes caffeine: Yes [facility] Anesthesia Checklist Patient Identification Patient Identification: Arm Band and Verbal (Name & ) Structural Data Admitted From: Home Planned Operative Procedure/s: EGD/Colonoscopy Consent for Planned Operative Procedure(s) Verified: Yes Verified Documents: Surgical Consent and History and Physical NPO Status Verified Time NPO: 00:00 Additional verifications Anesthesia Reactions: No Hx Blood Transfusions: No Blood Transfusion Reaction: No Airway Assessment Mallampati Score:: Class II C-Spine Mobility Assessed: Yes TMJ Mobility Assessed: Yes Dentition: Dentures-poor fitting (Removed) Neurological Assessment Level of Consciousness: Awake Hx Seizures: No Numbness or tingling in extremities: No Anesthesia Plan Anesthesia Risk discussed: Yes Anesthesia Plan: Verified ASA Class: III Anesthesia Type: MAC
[2024-05-21 09:06] VITALS: O2SAT 97
--- NOTE | 2024-05-21 09:12 | P.HP_ITS ---
History of Present Illness *Admission Date: 05/21/24 *Reason for visit:: Dysphagia and weight loss and prior history of colon polyps *History of present illness: Mr. Michelle is a 64-year-old gentleman who is here for EGD/colonoscopy. The patient does have dysphagia and weight loss. He does have a prior history of advanced adenomatous polyps and had colon resection. The examination is deemed medically necessary for further evaluation. The patient has been seen, interviewed and examined prior to the procedure by both myself and the anesthesia provider. [facility] Disclaimer: The information contained in this section may have been updated after the patient was seen, as this information can be updated by other users. Medical History (Updated 05/21/24 @ 09:14 by Titus James II, MD) Abnormal weight loss Dehydration Pancytopenia Alcohol abuse Alcohol abuse Alcohol abuse Colonoscopy planned Urinary tract infection History of COVID-19 History of syncope History of gastroesophageal reflux (GERD) History of heart attack History of chest pain Hyperlipidemia Hypertension Asymmetrical hearing loss Mixed conductive and sensorineural hearing loss of both ears Myocardial infarction HLD (hyperlipidemia) HTN (hypertension) Abnormal EKG Numbness of finger Hand pain, right CAD (coronary artery disease) Surgical History History of colonoscopy History of esophagogastroduodenoscopy (EGD) History of bowel resection History of ankle surgery History of heart artery stent Family History Other Cancer Diabetes Heart attack Hyperlipidemia Hypertension Social History Smoking Status: Former smoker how long ago did patient quit smokin years ago alcohol intake: current alcohol intake frequency: 3 or more drinks per day substance use type: denies use current occupational status: employed Travel in the last 8 weeks: None household members: spouse housing: house 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 current occupational exposures/hazards: Yes caffeine: Yes Review of Systems Review of Systems Review of systems (narrative): Negative *Cardiovascular Comments: Negative *Gastrointestinal Comments: Negative *Genitourinary Comments: Negative *Musculoskeletal Comments: Negative *Neurologic Comments: Negative Meds Home Medications and Allergies Home Medications ?Medication ?Instructions ?Recorded ?Confirmed ?Type cholecalciferol (vitamin D3) 25 25 mcg PO DAILY Supplement 10/25/20 05/19/24 History mcg (1,000 unit) capsule allopurinol 100 mg tablet 100 mg PO DAILY gout #90 tabs 07/03/23 05/19/24 Rx aspirin 81 mg tablet,delayed 81 mg PO DAILY heart health #90 07/03/23 05/19/24 Rx release tabs milk thistle 175 mg tablet 350 mg (2 x 175 mg) PO DAILY 07/03/23 05/19/24 Rx Supplement #180 tabs sildenafil 25 mg tablet See Rx Instructions .Route 09/12/23 05/19/24 Rx .COMPLEX #30 tabs rosuvastatin 40 mg tablet 40 mg PO DAILY #30 tabs 12/04/23 05/19/24 Rx sodium,potassium,mag sulfates 17.5 See Rx Instructions PO .COMPLEX 05/06/24 05/19/24 Rx gram-3.13 gram-1.6 gram oral soln #354 mL (Suprep Bowel Prep Kit) New Prescriptions to Start Prescriptions: Allergies Allergy/AdvReac Type Severity Reaction Status Date / Time diphenhydramine Allergy Hives Verified 05/21/24 08:37 [From Benadryl] hydrocodone Allergy Other Verified 05/21/24 08:37 nitroglycerin Allergy Hives Verified 05/21/24 08:37 Penicillins Allergy Hives Verified 05/21/24 08:37 atorvastatin [From Lipitor] AdvReac Severe Muscle Pain Verified 05/21/24 08:37 Exam Data for Last 24 hours Vital signs and Labs for Last 24 Hours: Temp Pulse Resp BP Pulse Ox O2 Del Method 97.0 F L 70 18 144/82 H 97 Room Air 05/21/24 08:39 05/21/24 08:39 05/21/24 08:39 05/21/24 08:39 05/21/24 08:39 05/21/24 08:39 I & O for Last 24 hours: Intake & Output 05/18/24 05/19/24 05/20/24 05/21/24 23:59 23:59 23:59 23:59 Weight 194 lb *Routine HEENT Exam Head: Present normocephalic Eye: Present EOMI and PERRL ENT: Present mucous membranes moist *Routine Neck Exam Neck: Present supple *Routine Respiratory Exam Respiratory: Present CTA bilaterally *Routine Cardiovascular Exam Cardiovascular: Present RRR *Routine Abdominal Exam Abdominal: Present soft and normoactive bowel sounds; Absent tenderness *Routine Rectal Exam Rectal:: deferred *Routine Genitalia Exam Genitalia:: deferred *Routine Extremities Exam Extremities: Absent cyanosis, clubbing or edema *Routine Skin Exam Skin: Present warm; Absent rash *Routine Neurological Exam Neurological: Present alert and oriented X3 Assessment and Plan *Assessment and plan (1) Dysphagia: Status: Acute Category: Medical Code(s): R13.10 - Dysphagia, unspecified (2) Abnormal weight loss: Status: Acute Category: Medical Code(s): R63.4 - Abnormal weight loss (3) Personal history of colonic polyps: Status: Acute Category: Medical Code(s): Z86.010 - Personal history of colonic polyps Plan A/P: 1. Dysphagia and screening is the preprocedural diagnosis. The patient will be anesthetized/sedated using MAC sedation. The patient has been seen and examined. Cardiac and lung assessment prior to the examination is stable. Proceed with planned EGD/colonoscopy
--- NOTE | 2024-05-21 09:22 | HMH.PROCNOTE ---
[facility] Procedure Note Date: 05/21/24 Time: 09:22 Procedure Note:: Upper Endoscopy Procedure Report: Esophagogastroduodenoscopy with cold biopsies and TTS balloon dilation Endoscopost: Titus James II, MD Referring Physician: BABAR Banks Date of Procedure: May 21, 2024 Equipment: Olympus GIF 190 standard upper endoscope Sedation: MAC sedation Indications: Mr. Michelle is a 64-year-old gentleman who is here for panendoscopy. The upper endoscopy was performed because of his dysphagia to liquids over solids. He has had a 12 pound weight loss in the last 6 weeks. He reports no bloating, belching, heartburn or reflux. He reports no early satiety. He has had no melena or hematochezia. He reports no family history of esophageal or gastric cancer. Procedure: Prior to the procedure, a history and physical exam was performed, and patient's medications and allergies were reviewed. The risks, benefits and alternatives of the sedation and procedure were discussed with the patient. All questions were answered and informed consent was obtained. The patient was brought to the procedure room. Patient identification and proposed procedure were verified by the physician and the nurse. The patient was placed in a left lateral decubitus position and the scope was passed under direct vision. Throughout the procedure, the patient's blood pressure, pulse, and oxygen saturations were monitored continuously. The upper GI endoscopy was accomplished without difficulty. The patient tolerated the procedure well. Findings: The scope was passed directly into the upper esophagus and advanced to the third portion of the duodenum. The post bulbar duodenum and duodenal bulb were normal with normal mucosa and conniventes. The scope was withdrawn through a normal duodenal bulb and pylorus into the stomach. There was minimal reactive gastropathy of the antrum. There was moderate chronic gastritis of the body and fundus?proximal gastritis or type a gastritis. There was a reticular mosaic pattern suspect H. pylori and biopsies were taken along the lesser curvature of the stomach for histology and to rule out H. pylori. Upon retroflexion there was no hiatal hernia. The scope was then withdrawn into the esophagus. There was no evidence of reflux esophagitis or Gomes's. There was a distal esophageal ring that was initially 10 to 11 mm and this was dilated to 18 mm with a TTS hydrostatic balloon. There was moderate esophageal dysmotility of the mid and proximal esophagus. The remainder of the esophageal mucosa was normal. Impression: 1. Distal esophageal ring (original diameter 10 to 11 mm)?dilated to 18 mm 2. Moderate esophageal dysmotility 3. Chronic gastritis/type A gastritis?rule out H. pylori Plan: I will follow-up the biopsies and discussed the findings with the patient and family. I will proceed with screening colonoscopy.
--- NOTE | 2024-05-21 09:26 | P.PCN_ITS ---
[facility] Procedure Note Date: 05/21/24 Time: 09:38 Procedure Note:: Colonoscopy Procedure Report: Colonoscopy with cold snare polypectomy Endoscopist: Titus James II, MD Referring physician: BABAR Banks/Kimani Mckeon MD Date of Procedure: May 21, 2024 Equipment: Olympus 190 variable stiffness pediatric colonoscope Sedation: MAC sedation Indication: Mr. Michelle is a 64-year-old gentleman who is here for follow-up high risk screening/surveillance colonoscopy secondary to a personal history of advanced adenomatous colon polyps. He had a prior positive Cologuard and had a colonoscopy in September 2021 and was found to have numerous large complex polyps in the proximal transverse colon and some bleeding from a sigmoid polypectomy. He did undergo segmental transverse colon resection on November 02, 2021 and the pathology revealed a 5 cm tubulovillous adenoma with high-grade dysplasia with no invasion of submucosa. The patient did have a repeat surveillance colonoscopy again in April 2022. He is due for repeat surveillance presently. He reports no abdominal pain, change in his bowel habits, rectal bleeding or family history of colon cancer. He has had some dysphagia and weight loss. Procedure: Prior to the procedure, a history and physical exam was performed, and patient's medications and allergies were reviewed. The risks, benefits and alternatives of the sedation and procedure were discussed with the patient. All questions were answered and informed consent was obtained. The patient was brought to the procedure room. Patient identification and proposed procedure were verified by the physician and the nurse. The patient was placed in a left lateral decubitus position and the scope was passed under direct vision. Throughout the procedure, the patient's blood pressure, pulse, and oxygen saturations were monitored continuously. The colonoscopy was accomplished without difficulty. The patient tolerated the procedure well. Findings: On digital rectal examination there was normal rectal tone. There were no external hemorrhoids. The colonoscope was introduced through the anal canal to the rectum and advanced to the cecum. The ileocecal valve and appendiceal orifice were identified. The scope was advanced a short distance into the ileum which appeared grossly normal. The scope was then withdrawn into the colon. The cecum, ascending and transverse colon and mucosa were grossly normal. There were 3 polyps (ascending x 2 (4 and 5 mm) and rectum x 1 (6 mm)). These were all removed via cold snare polypectomy. The anastomotic site was identified and appeared normal. There were scattered diverticuli throughout the descending and sigmoid colon (LEFT colon). The rectum itself was normal. Upon retroflexion within the rectum there were grade 1-2 internal hemorrhoids. The preparation was excellent throughout with Picabo Preparation Score of 9. The cecal time was 11 minutes. Impression: 1. Diminutive colonic polyps x 3 2. Left-sided diverticulosis 3. Normal transverse colocolonic anastomosis from prior transverse resection 4. Grade 1 internal hemorrhoids Plan: I will follow-up the polyp histology and recommend repeat surveillance colonoscopy again in 3 to 5 years.
[2024-05-21 09:41] VITALS: BP 96/65; PULSE 75; RESP 18; TEMP 36.5; O2SAT 95
[2024-05-21 09:51] VITALS: BP 117/76; PULSE 64; RESP 18; O2SAT 96
[2024-05-21 10:11] VITALS: BP 141/52; PULSE 65; RESP 18; O2SAT 96
[2024-05-21 10:21] VITALS: BP 132/84; PULSE 65; RESP 18; O2SAT 95
== END 2024-05-21 10:21 | disposition home or self-care (01) ==
PROVIDERS: PCP Nurse Practitioner Family; Visit Provider Internal Medicine Gastroenterology
PROC: 0DJ08ZZ Inspection of Upper Intestinal Tract, Via Natural or Artificial Opening Endoscopic (ICD-10-PCS; CPT 43235; principal; 2024-05-21 10:00)
DX: R13.10 Dysphagia, unspecified (principal); R63.4 Abnormal weight loss; Z86.010 Personal history of colon polyps; K22.4 Dyskinesia of esophagus; K29.50 Unspecified chronic gastritis without bleeding; K22.2 Esophageal obstruction; K62.1 Rectal polyp; D12.2 Benign neoplasm of ascending colon; K57.30 Diverticulosis of large intestine without perforation or abscess without bleeding; K64.0 First degree hemorrhoids
CPT/HCPCS: 43239; 43249; 45385; 99221; C1726; J7120

== ENCOUNTER 2024-06-11 10:57 | Outpatient (CLI) | payer OTHER, SELFPAY ==
[2024-06-11 11:25] LABS: Basophils % 0.8 % (0.1-2.0); Eosinophils # 0.2 K/mm3 (0.0-0.4); Eosinophils % 4.7 % (0.1-12.0); Hematocrit 40.8 % (42.0-52.0); Hemoglobin 13.8 g/dL (14.1-18.0); Lymphocytes # 1.3 K/mm3 (0.7-4.5); Lymphocytes % 28.8 % (10-50); Mean Corpuscular HGB Conc 33.8 g/dL (31.8-35.4); Mean Corpuscular Hemoglobin 34.9 pg (27.0-31.2); Mean Corpuscular Volume 103.3 fl (80-94); Mean Platelet Volume 8.2 fl (7.4-10.4); Monocytes # 0.5 K/mm3 (0.1-1.0); Monocytes % 10.5 % (1.7-9.3); Neutrophils # 2.6 K/mm3 (1.8-7.8); Neutrophils % 55.2 % (37.0-80.0); Platelet Count 151 K/mm3 (142-424); Red Blood Count 3.95 M/mm3 (4.60-6.20); Red Cell Distribution Width 13.5 % (11.5-17.5); White Blood Count 4.7 K/mm3 (4.8-10.8)
[2024-06-11 11:41] LABS: Alanine Aminotransferase 47 U/L (12-78); Albumin Level 4.6 g/dl (3.5-5.0); Alkaline Phosphatase 46 U/L (38-126); Aspartate Amino Transferase 70 U/L (17-59); Bilirubin,Direct 0.5 mg/dl (0.0-0.4); Bilirubin,Indirect 0.1 mg/dL (0.0-0.9); Bilirubin,Total 0.6 mg/dl (0.2-1.3); Bilirubin,Unconjugated 0.2 mg/dL (0.0-1.1); Blood Urea Nitrogen 12 mg/dl (9-20); Calcium 10.1 mg/dl (8.4-10.2); Carbon Dioxide 30 mmol/L (22.0-30.0); Chloride 105 mmol/L (98-107); Chol/HDL Ratio 1.7 (1-3.5); Cholesterol 168 mg/dl (140-200); Estimated Glomerular Filt Rate 56 ml/min (>60); GFR (African American) 67 ML/MIN (>60); Glucose 106 mg/dl (74-100); HDL Cholesterol 98 mg/dl (40-60); Magnesium 1.5 mg/dl (1.6-2.3); Sodium 136 mmol/L (136-145); Triglycerides 88 mg/dl (30-150); VLDL Cholesterol 18 mg/dL (0-40)
[2024-06-11 11:49] LABS: Anion Gap 4.9 mEq/L (5-15); Potassium 3.9 mmoL/L (3.5-5.1)
[2024-06-11 11:52] LABS: Direct LDL Cholesterol 56.78 mg/dL (100-129)
[2024-06-11 11:58] LABS: Free T4 (Free Thyroxine) 1.04 ng/dl (0.78-2.19)
[2024-06-11 12:12] LABS: Thyroid Stimulating Hormone 2.26 uIU/mL (0.465-4.68)
== END 2024-06-11 23:59 | disposition home or self-care (01) ==
LOC: LAB 10:57
PROVIDERS: PCP Nurse Practitioner Family; Visit Provider Physician Assistant
DX: I25.10 Atherosclerotic heart disease of native coronary artery without angina pectoris (principal); Z95.5 Presence of coronary angioplasty implant and graft; I10 Essential (primary) hypertension; E78.2 Mixed hyperlipidemia
CPT/HCPCS: 36415; 80048; 80061; 80076; 83735; 84439; 84443; 85025

== ENCOUNTER 2024-09-09 12:25 | Outpatient (CLI) | payer BC, SELFPAY ==
[2024-09-10 15:19] LABS: H. pylori Breath Test Negative (Negative)
== END 2024-09-09 23:59 | disposition home or self-care (01) ==
PROVIDERS: PCP Nurse Practitioner Family; Visit Provider Nurse Practitioner Family
DX: K29.70 Gastritis, unspecified, without bleeding (principal); B96.81 Helicobacter pylori [H. pylori] as the cause of diseases classified elsewhere
CPT/HCPCS: 83013

== ENCOUNTER 2025-04-28 10:56 | Outpatient (CLI) | payer MEDICARE, SELFPAY ==
[2025-04-28 15:45] LABS: Hematocrit 41.1 % (42.0-52.0); Hemoglobin 13.4 g/dL (14.1-18.0); Immature Granulocytes % 0.3 %; Mean Corpuscular HGB Conc 32.6 g/dL (31.8-35.4); Mean Corpuscular Hemoglobin 32.9 pg (27.0-31.2); Mean Corpuscular Volume 101.0 fl (80-94); Nucleated Red Blood Cells % 0 %; Platelet Count 108 K/mm3 (142-424); Red Blood Count 4.07 M/mm3 (4.60-6.20); Red Cell Distribution Width-SD 58.4 fL; White Blood Count 3.3 K/mm3 (4.8-10.8)
[2025-04-28 16:38] LABS: Albumin Level 4.5 g/dl (3.5-5.0); Chloride 103 mmol/L (98-107); Potassium 3.7 mmoL/L (3.5-5.1); Sodium 138 mmol/L (136-145)
[2025-04-28 16:41] LABS: Alanine Aminotransferase 54 U/L (12-78); Albumin/Globulin Ratio 1.3 (1.1-1.8); Alkaline Phosphatase 73 U/L (38-126); Anion Gap 14.7 mEq/L (5-15); Aspartate Amino Transferase 98 U/L (17-59); Bilirubin,Total 1.3 mg/dl (0.2-1.3); Blood Urea Nitrogen 11 mg/dl (9-20); Carbon Dioxide 24 mmol/L (22.0-30.0); Cholesterol 148 mg/dl (140-200); Creatinine,Serum 1.20 mg/dl (0.66-1.25); Estimated Glomerular Filt Rate 61 ml/min (>60); GFR (African American) 74 ML/MIN (>60); Globulin 3.4 g/dL (1.3-3.2); Glucose 97 mg/dl (74-100); Total Protein,Serum 7.9 g/dl (6.3-8.2); Triglycerides 64 mg/dl (30-150)
[2025-04-28 16:42] LABS: Calcium 9.3 mg/dl (8.4-10.2); HDL Cholesterol 103 mg/dl (40-60)
[2025-04-28 17:13] LABS: Thyroid Stimulating Hormone 2.79 uIU/mL (0.465-4.68)
--- OUTSIDE RECORDS SUMMARY | 2025-04-30 10:05 | XMS_ITS | Clinical Summary ---
Author Organization [facility] Address [address] [place] [address] Care Team Providers Care Ophthalmic Medical Technologist Name Role Phone Unavailable Primary Care Provider Unavailabl e Social History Tobacco Use Types Packs/Day Years Used Date Smoking Tobacco: Never Assessed Sex and Gender Information Value Date Recorded Sex Assigned at Not on file Legal Sex Male 4:07 PM EST Gender Identity Not on file Sexual Orientation Not on file Plan of Treatment Health Maintenance Due Date Last Done Comments CT Colonography 1960 Colonoscopy 1960 Colorectal Cancer Screening 1960 FIT-DNA 1960 FIT 1960 FOBT 1960 Hepatitis C Screening 1960 Sigmoidoscopy 1960 Tdap/Td Vaccine >11 yo (1 - Tdap) 01/19/1979 Pneumococcal Vaccines >50 yo (1 of 1 - PCV) 01/19/2010 Shingles (Shingrix) (1 of 2) 01/19/2010 Annual SDOH Screening 08/26/2024 Abdominal Aortic Aneurysm (A AA) Screen 01/19/2025 Influenza Vaccine (#1) 2025 Haemophilus Influenzae Type B (Hib) Vaccine Aged Out No longer eligible b ased on patient's age to complete this topic Hepatitis A (HepA) Vaccine Aged Out N o longer eligible based on patient's age to complete this topic Hepatitis B (HepB) Vaccine Aged Out N o longer eligible based on patient's age to complete this topic Meningococcal ACWY Aged Out No longer eligible based on patient's age to complete this topic Polio (IPV) Aged Out No longer eligi ble based on patient's age to complete this topic Rotavirus (RV) Vaccine Aged Out No lo nger eligible based on patient's age to complete this topic
--- OUTSIDE RECORDS SUMMARY | 2025-04-30 10:05 | XMS_ITS | Clinical Summary ---
Author Organization [facility] Address [address] [id number] Care Team Providers Care Hand Lens Polisher Name Role Phone Unavailable Primary Care Provider Unavailabl e Social History Tobacco Use Types Packs/Day Years Used Date Smoking Tobacco: Never Assessed Sex and Gender Information Value Date Recorded Sex Assigned at Not on file Legal Sex Male 9:06 AM EDT Gender Identity Not on file Sexual Orientation Not on file Last Filed Vital Signs Vital Sign Reading Time Taken Comments Blood Pressure 154/96 03/05/2023 9:20 AM EDT Pulse 95 03/05/2023 9:20 AM EDT Temperature - - Respiratory Rate - - Oxygen Saturation - - Inhaled Oxygen Concentration - - Weight 94.8 kg (209 lb) 03/05/2023 9:20 AM EDT Height 175.3 cm (5' 9 ) 03/05/2023 9:20 AM EDT Body Mass Index 30.86 03/05/2023 9:20 AM EDT Plan of Treatment Health Maintenance Due Date Last Done Comments [facility]-Depression Screening 1960 [facility]-Infant/Child/Adol SDOH Screenings 1960 [facility]- SDOH Screenings 01/19/1978 [facility]-Adult SDOH Screenings 01/19/1978 [facility]-DTaP,Tdap,and Td Vaccine s (1 - Tdap) 01/19/1979 CT Colonography 01/19/2005 Colonoscopy 01/19/2005 FIT-DNA 01/19/2005 FIT 01/19/2005 FOBT 01/19/2005 Sigmoidoscopy 01/19/2005 [facility]-Colorectal Cancer Screening 01/19/2005 [facility]-Pneumococcal Vaccine: 50 + Years (1 of 1 - PCV) 01/19/2010 [facility]-Zoster Vaccines (1 of 2) 01/19/2010 [id number] Vaccine (1 - 20 24-25 season) 2024 [facility]-Influenza Vaccine (#1) 2025 [facility]-RSV Vaccine: 60+ Years o r (1 - 1-dose 75+ series) 01/19/2035 HPV Vaccines Aged Out No longer eligi ble based on patient's age to complete this topic [facility]-HIB Vaccines Aged Out No longer e ligible based on patient's age to complete this topic [facility]-Hepatitis A Vaccines Aged Out No longer eligible based on patient's age to complete this topic [facility]-IPV Vaccines Aged Out No longer e ligible based on patient's age to complete this topic [facility]-Rotavirus Vaccines Aged Out No lo nger eligible based on patient's age to complete this topic Insurance [employer]ICA[employer]
== END 2025-04-28 23:59 ==
LOC: LAB.DROPOF 04-30 10:04
PROVIDERS: PCP Nurse Practitioner Family; Visit Provider Nurse Practitioner Family
DX: I95.9 Hypotension, unspecified (principal); R73.03 Prediabetes; K63.89 Other specified diseases of intestine; M10.9 Gout, unspecified; I10 Essential (primary) hypertension; Z12.5 Encounter for screening for malignant neoplasm of prostate; E78.5 Hyperlipidemia, unspecified
CPT/HCPCS: 80053; 80061; 84443; 85025